=== PATIENT | male | born 1970 | race Caucasian/White ===

== ENCOUNTER → 2016-10-12 | Day surgery (SDC) | payer OTHER ==
[~2016-10-12] VITALS: Ht 177.8 cm; Wt 120.7 kg
[~2016-10-12] MED LIST: ACETAMINOPHEN 1000 MG/100 ML VIAL IV ONE; AMLO10 PO; ASPI-110 PO; BELLADONNA ALKALOIDS/OPIUM 60 MG SUPP RECTAL ONE; BENZ100 PO; CARV12.5 PO; CARV12.52 PO; CIPR-9 PO; DO NOT ADM ANY ANTICOAGULANT DRUGS XX PRN; FAMOTIDINE 20 MG/2 ML VIAL IV ONE; FURO1TAB60 PO; FURO20TA PO; HYDR-2374 PO; HYDR-3583 PO; HYDROmorphone HCL PF 1 MG/ML VIAL IV PRN; IOHEXOL 350 MG/ML 100 ML BTL (for RAD DIAG) OTHER ONE; ISOS30TA3 PO; LACTATED RINGER'S 1000 ML INJ 1,000 ML ONE; LISI-515 PO; MIDAZOLAM HCL 2 MG/2 ML VIAL ONE; NITR0.4S SL; ONDA1TAB17 PO; ONDANSETRON HCL 4 MG/2 ML VIAL IV PUSH ONE; ONDANSETRON HCL 4 MG/2 ML VIAL IV PUSH PRN; OXYB5TAB10 PO; OXYC1TAB63 PO; PERC5TAB12 PO; PLAV75TA29 PO; POTA-163 PO; POTA10TA2 PO; POTA20TA5 PO; PRAV80TA PO; PROPOFOL 200 MG/20 ML AMP IV ONE; SODIUM CHLORIDE 0.9% INJ 100 ML ONE; SPIR25 PO; Spironolactone PO; TAMS5CAP PO; WELC625T2 PO; ZETI10TA5 PO; ZOFR4TAB3 SL; ceFAZolin INJ 1,000 MG VIAL ONE; oxyCODONE/ACETAMINOPHEN 5 MG/325 MG TAB PO PRN
[2016-10-12 09:03] VITALS: BP 151/90; PULSE 74; RESP 20; TEMP 98.1; O2SAT 95
[2016-10-12 09:15] LABS: AUTOMATED NEUTROPHIL # 4.6 TH/MM3 (1.8-7.7); BASOPHIL % 0.5 % (0.0-2.0); EOSINOPHIL # 0.3 TH/MM3 (0-0.4); EOSINOPHIL % 4.3 % (0.0-4.0); HEMATOCRIT 37.4 % (39.0-51.0); HEMO FLAGS DIFF FINAL; LYMPH % 16.3 % (9.0-44.0); LYMPHOCYTE # 1.1 TH/MM3 (1.0-4.8); MEAN CELL VOLUME 86.2 FL (80.0-100.0); MEAN CORPUSCULAR HEMOGLOBIN 30.3 PG (27.0-34.0); MEAN CORPUSCULAR HGB CONC 35.2 % (32.0-36.0); MONO % 7.2 % (0.0-8.0); NEUT % 71.7 % (16.0-70.0); PLATELET COUNT 188 TH/MM3 (150-450); RED BLOOD COUNT 4.34 MIL/MM3 (4.50-5.90); RED CELL DISTRIBUTION WIDTH 14.3 % (11.6-17.2); WHITE BLOOD COUNT 6.5 TH/MM3 (4.0-11.0)
--- NOTE | 2016-10-12 11:21 | PD.OP ---
Operative Report Date of Surgery: Oct 12, 2016 Preoperative Diagnosis: right renal and ureteral stones Postoperative Diagnosis: same Procedure: cystoscopy; right retrograde study; right JJ stent insertion Anesthesia: General LMA Surgeon: Adolfo Fofana Development Intern(s): none Resident Surgeon: none Operation and Findings: 45 y.o. male presented to the office with findings of bilateral renal calculi with right ureteral calculi. Plan was to take the pt to the operating room to undergo cystoscopy with right JJ stent insertion. Risks and benefits were discussed and the patient was willing to proceed. Patient was brought to the operating room and identified by myself as Milo Patino. He was placed in dorsal lithotomy position, prepped and draped in usual sterile fashion, received preprocedure antibiotics, and general LMA anesthesia was administered. A a 22 [place] scope was inserted in the bladder acharya cystoscopy did not reveal any abnormalities. The right ureteral orifice was identified and a 5 [place] open catheter was inserted into the right ureteral orifice. Right retrograde study was performed showing a proximal ureteral stone as well as some small stones within the right kidney. A 0.35 sensor wire was passed through the open- ended catheter and left in good position. A 22 [place] 6 cm right double-J stent was inserted into the right kidney with a good curl in the kidney and a good curl in the bladder. The bladder was evacuated and he was transferred to recovery was stable condition. He will follow-up to undergo possible right extracoporeal shockwave lithotripsy in the near future once we obtain cardiac clearance. We will need to hold his aspirin and Plavix preoperatively if cleared by cardiology. Adolfo Fofana DO Oct 12, 2016 11:21
[2016-10-12 12:40] VITALS: BP 156/96; PULSE 56; RESP 16; TEMP 97.9; O2SAT 98
--- NOTE | 2016-10-12 14:46 | EKG ---
Date Performed: 10/12/2016 Time Performed: 10:28:05 PTAGE: 45 years EKG: Sinus rhythm POSSIBLE LEFT ATRIAL ENLARGEMENT LEFT VENTRICULAR HYPERTROPHY AND ST-T CHANGE ABNORMAL ECG Compared to prior tracing no significant change PREVIOUS TRACING : 06/07/2016 07.06 DOCTOR: Sourav Frances Interpretating Date/Time 10/12/2016 14:41:32
== END | disposition home or self-care (01) ==
LOC: HSDC 07:58
PROVIDERS: ATTEND Urology
DX: N20.2 Calculus of kidney with calculus of ureter (principal); I25.10 Atherosclerotic heart disease of native coronary artery without angina pectoris; I10 Essential (primary) hypertension; E78.5 Hyperlipidemia, unspecified; Z95.1 Presence of aortocoronary bypass graft
CPT/HCPCS: 00910; 52332; 74420; 85025; 93005; C1769; C2617; J0131; J0690; J2250; J2405; J3010; J7120; Q9967

== ENCOUNTER → 2016-11-01 | Day surgery (SDC) | payer OTHER ==
[~2016-11-01] VITALS: Ht 177.8 cm; Wt 121.0 kg
[~2016-11-01] MED LIST changes: -ACETAMINOPHEN 1000 MG/100 ML VIAL IV ONE; -BELLADONNA ALKALOIDS/OPIUM 60 MG SUPP RECTAL ONE; +CHLORHEXIDINE GLUCONATE 2 % 1 PACK (2 CLOTHS) TOPICAL PRN; +DEXAMETHASONE SOD PHOS 4 MG/ML VIAL ONE; +DO NOT ADM ANY ANTICOAGULANT DRUGS PRN; -DO NOT ADM ANY ANTICOAGULANT DRUGS XX PRN; -FAMOTIDINE 20 MG/2 ML VIAL IV ONE; +FAMOTIDINE 20 MG/2 ML VIAL ONE; -HYDROmorphone HCL PF 1 MG/ML VIAL IV PRN; +INSULIN HUMAN REGULAR 1,000 UNITS/10 ML VIAL SQ PRN; -IOHEXOL 350 MG/ML 100 ML BTL (for RAD DIAG) OTHER ONE; -LACTATED RINGER'S 1000 ML INJ 1,000 ML ONE; +LACTATED RINGER'S 1000 ML IV PRN; +METOPROLOL TARTRATE 25 MG TAB PO PRN; +POVIDONE IODINE 5% (ANTISEPSIS KIT) 4 APPLICATIONS EACH NARE PRN; +SODIUM CHLORID 0.9% 500 ML IV PRN; -SODIUM CHLORIDE 0.9% INJ 100 ML ONE; -ceFAZolin INJ 1,000 MG VIAL ONE; +ePHEDrine/NS 25 MG/5 ML SYR IV ONE; +fentaNYL CITRATE 250 MCG/5 ML AMP ONE
--- NOTE | 2016-11-01 06:10 | RADRPT ---
EXAM DATE/TIME: 11/01/2016 05:44 [facility] COMPARISON: CTA THORACIC ABDOMINAL AORTA W 3D RECON, June 07, 2016, 3:29. INDICATIONS : Lithotripsy. Abdomen pain. MEDICAL HISTORY : None. SURGICAL HISTORY : None. ENCOUNTER: Initial ACUITY: 1 day PAIN SCORE: 0/10 LOCATION: Bilateral abdomen FINDINGS: Supine view of the abdomen was performed. Limited study due to patient's body habitus. The abdominal bowel gas pattern is normal. Right-sided double-J stent noted. There appear to be some right-sided r enal calculi more prominent in the lower lobe measuring up to 2.7 cm. 1 cm upper pole right renal douglas culus and lower pole left renal calculus. No abnormal masses, calcifications, or organomegaly is seen . The osseous structures are unremarkable. CONCLUSION: Bilateral renal calculi and right-sided nephroureteral stent. Mitch Toro MD on November 01, 2016 at 6:07 Board Certified Radiologist. This report was verified electronically.
[2016-11-01 06:19] VITALS: BP 154/95; PULSE 76; RESP 20; TEMP 98.4; O2SAT 95
[2016-11-01 06:24] LABS: AUTOMATED NEUTROPHIL # 4.5 TH/MM3 (1.8-7.7); BASOPHIL % 0.5 % (0.0-2.0); EOSINOPHIL # 0.3 TH/MM3 (0-0.4); HEMATOCRIT 37.1 % (39.0-51.0); HEMO FLAGS DIFF FINAL; LYMPH % 17.7 % (9.0-44.0); LYMPHOCYTE # 1.1 TH/MM3 (1.0-4.8); MEAN CELL VOLUME 86.6 FL (80.0-100.0); MEAN CORPUSCULAR HEMOGLOBIN 30.1 PG (27.0-34.0); MEAN CORPUSCULAR HGB CONC 34.8 % (32.0-36.0); NEUT % 68.8 % (16.0-70.0); PLATELET COUNT 180 TH/MM3 (150-450); RED BLOOD COUNT 4.28 MIL/MM3 (4.50-5.90); RED CELL DISTRIBUTION WIDTH 14.3 % (11.6-17.2); WHITE BLOOD COUNT 6.5 TH/MM3 (4.0-11.0)
--- NOTE | 2016-11-01 08:43 | PD.OP ---
Operative Report Date of Surgery: Nov 01, 2016 Preoperative Diagnosis: (1) Renal calculus, right Postoperative Diagnosis: (1) Renal calculus, right Procedure: Extra corporeal shockwave lithotripsy right renal calculus Anesthesia: General Surgeon: Boston Parham Casino Cashier Manager(s): None Operation and Findings: Indication for procedure: Case of a pleasant 45-year-old gentleman with a large right lower pole renal calculus who presents today for extracorporeal shockwave lithotripsy. Patient is status post recent right ureteral stent placement by my associate Dr. Fofana. Operative procedure in detail: Patient was brought to the operating room suite and placed supine on the lithotripsy table. He was then placed under general anesthesia. After an appropriate timeout was undertaken, the patient's right lower pole renal calculus was localized with fluoroscopy. He next received extracorporeal shockwave lithotripsy utilizing the [employer] Piezolith 3000 device. The patient received a total of 3000 shocks with a maximum power level setting of 20. At the conclusion of the procedure the stone was spread out and much fishing rod mechanic in intensity consistent with fragmentation. He tolerated the procedure without complications and was transferred to the PACU in satisfactory condition. Boston Parham MD Nov 01, 2016 08:43
[2016-11-01 10:00] VITALS: BP 144/93; PULSE 70; RESP 20; TEMP 97.9; O2SAT 96
== END | disposition home or self-care (01) ==
LOC: HSDC 05:15
PROVIDERS: ATTEND Urology
DX: N20.0 Calculus of kidney (principal); I10 Essential (primary) hypertension
CPT/HCPCS: 00873; 50590; 74000; 85025; J1100; J2250; J2405; J3010; J7120

== ENCOUNTER 2016-11-17 19:47 | Inpatient (IN) | payer OTHER ==
[~2016-11-17] VITALS: Ht 177.8 cm; Wt 122.0 kg
[~2016-11-17 19:47] MED LIST changes: -BENZ100 PO; -CARV12.52 PO; -CHLORHEXIDINE GLUCONATE 2 % 1 PACK (2 CLOTHS) TOPICAL PRN; -DEXAMETHASONE SOD PHOS 4 MG/ML VIAL ONE; -DO NOT ADM ANY ANTICOAGULANT DRUGS PRN; -FAMOTIDINE 20 MG/2 ML VIAL ONE; -FURO20TA PO; -HYDR-2374 PO; -HYDR-3583 PO; -INSULIN HUMAN REGULAR 1,000 UNITS/10 ML VIAL SQ PRN; -LACTATED RINGER'S 1000 ML IV PRN; -METOPROLOL TARTRATE 25 MG TAB PO PRN; -MIDAZOLAM HCL 2 MG/2 ML VIAL ONE; -ONDA1TAB17 PO; -ONDANSETRON HCL 4 MG/2 ML VIAL IV PUSH ONE; -ONDANSETRON HCL 4 MG/2 ML VIAL IV PUSH PRN; -OXYB5TAB10 PO; -OXYC1TAB63 PO; -POTA-163 PO; -POTA10TA2 PO; -POVIDONE IODINE 5% (ANTISEPSIS KIT) 4 APPLICATIONS EACH NARE PRN; -PROPOFOL 200 MG/20 ML AMP IV ONE; -SODIUM CHLORID 0.9% 500 ML IV PRN; -Spironolactone PO; -TAMS5CAP PO; -WELC625T2 PO; -ZETI10TA5 PO; -ZOFR4TAB3 SL; -ePHEDrine/NS 25 MG/5 ML SYR IV ONE; -fentaNYL CITRATE 250 MCG/5 ML AMP ONE; -oxyCODONE/ACETAMINOPHEN 5 MG/325 MG TAB PO PRN
[2016-11-17 19:48] VITALS: BP 168/103; PULSE 96; RESP 16; TEMP 98.8; O2SAT 98
[2016-11-17 20:17] VITALS: BP 169/95; PULSE 95; RESP 18; O2SAT 97
[2016-11-17] MEDS ORDERED: PLAV75TA29 PO (20:21)
[2016-11-17] MEDS ORDERED: ASPIRIN 81 MG CHEW TAB PO ONE (20:30)
[2016-11-17] MEDS ORDERED: SODIUM CHLORIDE 0.9% FLUSH 10 ML FLUSH IVF PRN (20:30)
[2016-11-17] MEDS: NITROGLYCERIN 0.4 MG SL 25 TABS/BTL SL SCH ×3 (20:35→20:40)
--- NOTE | 2016-11-17 20:45 | PD ---
HPI Chief Complaint: Chest Pain Time Seen by Provider: 20:19 Travel History International Travel<30 days: No Contact w/Intl Traveler<30days: No Traveled to known affect area: No History of Present Illness HPI 46yo M with PMH of CAD s/p multiple cardiac cath with 3 stents presents to the ED with c/o chest pain for 1 week. States that he has been having cold like symptoms with coughing, nasal congestion and today chest pain worsened. Pain is pressure like, constant, left sided and now radiates to left arm with heaviness. Associated with some sob and nausea earlier. Pt took aspirin at home. Pt had PCI to mid LAD with placement of drug eluting stent by Dr. Schneider last 05/2016. However, pt follows with Dr. Lima (case liner) now due to insurance and has stress test schedule 1 year from last cath. Denies any fever, vomiting, abdominal pain, focal weakness. PFSH Past Medical History Arthritis: Yes Depression: Yes Cancer: No Cardiac Catheterization: Yes Cardiovascular Problems: Yes (6 AR with 3 stents) High Cholesterol: Yes Chest Pain: Yes Congestive Heart Failure: Yes Cerebrovascular Accident: Yes (TIA X 2) Diabetes: Yes (borderline) Patient Takes Glucophage: No Diminished Hearing: No Endocrine: No GERD: Yes Genitourinary: No Headaches: Yes Hepatitis: No Hiatal Hernia: No Hypertension: Yes Immune Disorder: No Reproductive: No Respiratory: No Migraines: Yes Myocardial Infarction: Yes (X 6) Pneumonia: Yes Sleep Apnea: Yes Thyroid Disease: No Tetanus Vaccination: < 5 Years Influenza Vaccination: No Past Surgical History AICD: No Body Medical Devices: 3 CARDIAC STENTS & STENT RIGHT KIDNEY Cardiac Surgery: Yes (heart caths) Cholecystectomy: Yes Coronary Stent: Yes (X 3) Joint Replacement: No Pacemaker: No Tonsillectomy: Yes Other Surgery: Yes (gallbladder, ) Social History Alcohol Use: No Tobacco Use: No Substance Use: No Allergies-Medications (Allergen,Severity, Reaction): Coded Allergies: Lipitor (Verified Allergy, Severe, Rash, 11/17/16) LEGS Morphine (Verified Allergy, Severe, Constipation, 11/17/16) Zocor (Verified Allergy, Severe, Rash, 11/17/16) LEGS HMG-CoA Reductase Inhibitors (Verified Allergy, Unknown, Cramping, 11/17/16 ) Reported Meds & Prescriptions Reported Meds & Active Scripts Active Percocet (Oxycodone-Acetaminophen) 5-325 mg Tab 1-2 Tab PO Q6H PRN Norvasc (Amlodipine Besylate) 10 Mg Tab 10 Mg PO DAILY Pravachol (Pravastatin) 80 Mg Tab 80 Mg PO HS Potassium Chloride Microencaps 20 Meq Tab 20 Meq PO BID Lisinopril 20 Mg Tab 40 Mg PO DAILY Lasix (Furosemide) 40 Mg Tab 40 Mg PO DAILY Coreg (Carvedilol) 12.5 Mg Tab 25 Mg PO BID Reported Plavix (Clopidogrel Bisulfate) 75 Mg Tab 75 Mg PO DAILY Cipro (Ciprofloxacin HCl) 500 Mg Tab 500 Mg PO BID Aldactone (Spironolactone) 25 Mg Tab 25 Mg PO DAILY Isosorbide Mononitrate ER (Isosorbide Mononitrate) 30 Mg Sameer 30 Mg PO DAILY Nitrostat SL (Nitroglycerin) 0.4 Mg Subl 0.4 Mg SL DIRECTED PRN 1 tablet under the tongue as needed for chest pain. Repeat every 5 minutes for a total of 3 DOSES or call 911 if NO relief. Aspirin 81 (Aspirin) 81 Mg Tabdr 81 Mg PO DAILY Review of Systems Except as stated in HPI: all other systems reviewed are Neg Physical Exam Narrative GENERAL: 46yo M in mild distress. SKIN: Focused skin assessment warm/dry. HEAD: Atraumatic. Normocephalic. EYES: Pupils equal and round. No scleral icterus. No injection or drainage. ENT: No nasal bleeding or discharge. Mucous membranes pink and moist. NECK: Trachea midline. No JVD. CARDIOVASCULAR: Regular rate and rhythm. No murmur appreciated. RESPIRATORY: No accessory muscle use. Clear to auscultation. Breath sounds equal bilaterally. GASTROINTESTINAL: Abdomen soft, non-tender, nondistended. MUSCULOSKELETAL: No obvious deformities. No clubbing. No cyanosis. No edema. NEUROLOGICAL: Awake and alert. No obvious cranial nerve deficits. Motor grossly within normal limits. Normal speech. PSYCHIATRIC: Appropriate mood and affect; insight and judgment normal. Data Data Last Documented VS Vital Signs Date Time Temp Pulse Resp B/P Pulse Ox O2 Delivery O2 Flow Rate FiO2 11/17/16 21:16 97 Room Air 11/17/16 21:16 93 18 163/91 175/78 11/17/16 19:48 98.8 Orders Basic Metabolic Panel (Bmp) (11/17/16 20:27) Ckmb (Isoenzyme) Profile (11/17/16 20:27) Complete Blood Count With Diff (11/17/16 20:27) Magnesium (Mg) (11/17/16 20:27) Prothrombin Time / Inr (Pt) (11/17/16 20:27) Act Partial Throm Time (Ptt) (11/17/16 20:27) Troponin I (11/17/16 20:27) Chest, Single Ap (11/17/16 20:27) Ecg Monitoring (11/17/16 20:27) Bilateral Bp Monitoring (11/17/16 20:27) Iv Access Insert/Monitor (11/17/16 20:27) Oximetry (11/17/16 20:27) Oxygen Administration (11/17/16 20:27) Aspirin Chew (Aspirin Chew) (11/17/16 20:30) Sodium Chloride 0.9% Flush (Ns Flush) (11/17/16 20:30) Nitroglycerin Sl (Nitrostat Sl) (11/17/16 20:30) Acetaminophen (Tylenol) (11/17/16 22:00) Admit Order (Ed Use Only) (11/17/16 22:17) Spooler / Telemetry JOHANNA.Q8H (11/17/16:17) Metoprolol Tartrate (Lopressor) (11/18/16 09:00) Heparin Infusion JOHANNA.Q1H (11/17/16:17) Heparin Inj (Heparin Inj) (11/18/16 04:30) Heparin Inj (Heparin Inj) (11/18/16 04:30) Heparin-D5w Inj (Heparin-D5w Inj) (11/17/16 22:30) Act Partial Throm Time (Ptt) (11/17/16 22:17) Prothrombin Time / Inr (Pt) (11/17/16:17) Cbc No Diff, Includes Plts (11/17/16:17) Cbc No Diff, Includes Plts (11/20/16 06:00) Act Partial Throm Time (Ptt) (11/18/16 05:17) Npo After Midnight W/ Po Meds (11/18/16 Breakfast) Labs Laboratory Tests Test 11/17/16 20:35 White Blood Count 9.8 TH/MM3 Red Blood Count 4.47 MIL/MM3 Hemoglobin 13.3 GM/DL Hematocrit 38.7 % Mean Corpuscular Volume 86.6 FL Mean Corpuscular Hemoglobin 29.8 PG Mean Corpuscular Hemoglobin 34.4 % Concent Red Cell Distribution Width 14.4 % Platelet Count 195 TH/MM3 Mean Platelet Volume 9.0 FL Neutrophils (%) (Auto) 77.5 % Lymphocytes (%) (Auto) 9.0 % Monocytes (%) (Auto) 6.9 % Eosinophils (%) (Auto) 6.2 % Basophils (%) (Auto) 0.4 % Neutrophils # (Auto) 7.6 TH/MM3 Lymphocytes # (Auto) 0.9 TH/MM3 Monocytes # (Auto) 0.7 TH/MM3 Eosinophils # (Auto) 0.6 TH/MM3 Basophils # (Auto) 0.0 TH/MM3 CBC Comment DIFF FINAL Differential Comment Prothrombin Time 10.3 SEC Prothromb Time International 0.9 RATIO Ratio Activated Partial 27.2 SEC Thromboplast Time Sodium Level 139 MEQ/L Potassium Level 3.5 MEQ/L Chloride Level 103 MEQ/L Carbon Dioxide Level 28.6 MEQ/L Anion Gap 7 MEQ/L Blood Urea Nitrogen 14 MG/DL Creatinine 1.57 MG/DL Estimat Glomerular Filtration 48 ML/MIN Rate Random Glucose 153 MG/DL Calcium Level 8.7 MG/DL Magnesium Level 1.9 MG/DL Total Creatine Kinase 39 U/L Troponin I LESS THAN 0.02 NG/ML [facility] Medical Decision Making Medical Screen Exam Complete: Yes Emergency Medical Condition: Yes Interpretation(s) EKG: NSR 96bpm. LAD. TWI V4-6 unchanged. However, new ST depression diffusely in I, aVL, II, aVF. Differential Diagnosis Unstable angina vs. NSTEMI Narrative Course 46yo M with CAD and left sided chest pain for about 1 week but is worst today with new heaviness to left arm. Labs reviewed, no leukocytosis. Troponin negative. Creatinine mildly elevated at 1.57 but around baseline. Troponin is negative. CXR showed cardiomegaly. Pt given another dose of aspirin 81mg since he took his aspirin 81mg at home. Pt given sublingual nitro but it gave him a headache and he is requesting acetaminophen. Pt does not want any more nitro and does not want morphine because he gets very constipated. Discussed with cardiology vp construction Dr. Harrell who recommends beta elio, heparin, IV nitro and NPO after midnight. He will plan for cardiac cath tomorrow. Pt does not want nitro but agree with plan. Discussed with Dr. Long and accepted to her service. Critical Care Narrative Aggregate critical care time was 40 minutes. Time to perform other separately billable procedures was not included in the critical care time. My time did not include minutes spent treating any other patients simultaneously or on activities that did not directly contribute to the patient's treatment. The services I provided to this patient were to treat and/or prevent clinically significant deterioration that could result in: cardiovascular collapse or . I provided critical care services requiring my management, as noted below: Chart data review, documentation time, medication orders and management, vital sign assessments/reviewing monitor data, ordering and reviewing lab tests, ordering and interpreting/reviewing x-rays and diagnostic studies, care of the patient and discussion of the patient with the admitting physicians. Diagnosis Primary Impression: Unstable angina Anais Song DO Nov 17, 2016 20:45
[2016-11-17 20:56] LABS: AUTOMATED NEUTROPHIL # 7.6 TH/MM3 (1.8-7.7); BASOPHIL % 0.4 % (0.0-2.0); EOSINOPHIL # 0.6 TH/MM3 (0-0.4); EOSINOPHIL % 6.2 % (0.0-4.0); HEMATOCRIT 38.7 % (39.0-51.0); HEMO FLAGS DIFF FINAL; LYMPHOCYTE # 0.9 TH/MM3 (1.0-4.8); MEAN CELL VOLUME 86.6 FL (80.0-100.0); MEAN CORPUSCULAR HEMOGLOBIN 29.8 PG (27.0-34.0); MEAN CORPUSCULAR HGB CONC 34.4 % (32.0-36.0); MONO % 6.9 % (0.0-8.0); NEUT % 77.5 % (16.0-70.0); PLATELET COUNT 195 TH/MM3 (150-450); RED BLOOD COUNT 4.47 MIL/MM3 (4.50-5.90); RED CELL DISTRIBUTION WIDTH 14.4 % (11.6-17.2); WHITE BLOOD COUNT 9.8 TH/MM3 (4.0-11.0)
[2016-11-17 21:10] LABS: APTT (PATIENT) 27.2 SEC (24.3-30.1); INTERNATIONAL NORMALIZED RATIO 0.9 RATIO; PROTHROMBIN TIME - PATIENT 10.3 SEC (9.8-11.6)
[2016-11-17 21:16] VITALS: BP_SYST 163; BP_SYST 175; BP_DIAS 78; BP_DIAS 91; PULSE 93; RESP 18; O2SAT 97
--- NOTE | 2016-11-17 21:16 | RADRPT ---
EXAM DATE/TIME: 11/17/2016 20:46 [facility] COMPARISON: CHEST SINGLE AP, June 06, 2016, 17:55. INDICATIONS : Chest pain and slight shortness of breath. MEDICAL HISTORY : Hypertension. Congestive heart failure. Coronary artery disease. Cardiomegaly. SURGICAL HISTORY : Stent placement. ENCOUNTER: Initial ACUITY: 1 week PAIN SCORE: 4/10 LOCATION: Left chest FINDINGS: Heart size is mildly enlarged. The lungs are grossly clear. No effusion is seen. Spurs are seen in th e thoracic spine. CONCLUSION: Cardiomegaly. Andrea Bates MD on November 17, 2016 at 21:14 Board Certified Radiologist. This report was verified electronically.
[2016-11-17 21:25] LABS: ANION GAP 7 MEQ/L (5-15); BICARBONATE 28.6 MEQ/L (21.0-32.0); BLOOD UREA NITROGEN 14 MG/DL (7-18); CHLORIDE 103 MEQ/L (98-107); GLOMERULAR FILTRATION RATE 48 ML/MIN (>89); MAGNESIUM 1.9 MG/DL (1.5-2.5); POTASSIUM 3.5 MEQ/L (3.5-5.1); SODIUM (NA) 139 MEQ/L (136-145)
[2016-11-17 21:31] LABS: CREATINE KINASE 39 U/L (39-308)
[2016-11-17] MEDS ORDERED: ACETAMINOPHEN 325 MG TAB PO ONE (22:00)
--- NOTE | 2016-11-17 22:27 | HHI.HP ---
[facility] Huang Graf DO Admission Diagnosis Unstable angina Diagnoses: (1) Unstable angina Diagnosis: Principal (2) HTN (hypertension) Diagnosis: Principal (3) Renal insufficiency Diagnosis: Principal (4) CHF (congestive heart failure) Diagnosis: Principal Travel History International Travel<30 Days: No Contact w/Intl Traveler <30 Da: No Traveled to Known Affected Are: No History of Present Illness This is a 46-year-old male with a PMH of Depression, CHF (Echo 06/07/16 w/ EF 45 -50%), CAD s/p Stent x3, h/o TIA and GERD who presented to the ER w/ complaints of chest pain x1 wk. States pain has been intermittent, pressure-like w/ radiation to left arm. Notes symptoms similar to previous episodes of CAD. Last Cath 05/[address] Schneider w/ PCI to Mid LAD and JAVED. Follows w/ Dr. Lima as outpatient, states he is scheduled for Stress Test in May. On arrival, BP 175/78, HR 93, O2 sat 97% on RA, Afebrile. CBC unremarkable. Troponin negative. Creatinine 1.57, previously 1.45 on 06/08/16. CXR with cardiomegaly. Dr. Harrell consulted by ER physician, recommended Heparin gtt and NPO after midnight for Cardiac Cath in am. S/p NTG in ER, however pt w/ headache. Declines Morphine due to constipation. Review of Systems Except as stated in HPI: all other systems reviewed are Neg ROS: 14 point review of systems otherwise negative. Past Family Social History Past Medical History PMH: Depression, CHF (Echo 06/07/16 w/ EF 45-50%), CAD s/p Stent x3, h/o TIA and GERD Past Surgical History PAST SURGICAL HISTORY: Cardiac Stent, Cholecystectomy, Tonsillectomy Allergies: Coded Allergies: Lipitor (Verified Allergy, Severe, Rash, 11/17/16) LEGS Morphine (Verified Allergy, Severe, Constipation, 11/17/16) Zocor (Verified Allergy, Severe, Rash, 11/17/16) LEGS HMG-CoA Reductase Inhibitors (Verified Allergy, Unknown, Cramping, 11/17/16 ) Family History PAST FAMILY HISTORY: Reviewed. No h/o DM or CAD Social History PAST SOCIAL HISTORY: Negative for alcohol, tobacco or drugs. Physical Exam Vital Signs Vital Signs Date Time Temp Pulse Resp B/P Pulse Ox O2 Delivery O2 Flow Rate FiO2 11/17/16 21:16 97 Room Air 11/17/16 21:16 97 Room Air 11/17/16 21:16 93 18 163/91 97 Room Air 175/78 11/17/16 20:17 95 18 169/95 97 11/17/16 19:48 98.8 96 16 168/103 98 Room Air Physical Exam PE: GENERAL: Middle-aged white male in no acute distress. HEENT: PERRLA, EOMI. No scleral icterus or conjunctival pallor. No lid lag or facial droop. CARDIOVASCULAR: Regular rate and rhythm. No obvious murmurs to auscultation. No chest tenderness to palpation. RESPIRATORY: No obvious rhonchi or wheezing. Clear to auscultation. Breath sounds equal bilaterally. GASTROINTESTINAL: Abdomen soft, non-tender, nondistended. BS normal. MUSCULOSKELETAL: Extremities without clubbing, cyanosis, or edema. No obvious deformities. NEUROLOGICAL: Awake, alert and oriented x4. No focal neurologic deficits. Moving both upper and lower extremities spontaneously. Laboratory Laboratory Tests Test 11/17/16 20:35 White Blood Count 9.8 Red Blood Count 4.47 Hemoglobin 13.3 Hematocrit 38.7 Mean Corpuscular Volume 86.6 Mean Corpuscular Hemoglobin 29.8 Mean Corpuscular Hemoglobin 34.4 Concent Red Cell Distribution Width 14.4 Platelet Count 195 Mean Platelet Volume 9.0 Neutrophils (%) (Auto) 77.5 Lymphocytes (%) (Auto) 9.0 Monocytes (%) (Auto) 6.9 Eosinophils (%) (Auto) 6.2 Basophils (%) (Auto) 0.4 Neutrophils # (Auto) 7.6 Lymphocytes # (Auto) 0.9 Monocytes # (Auto) 0.7 Eosinophils # (Auto) 0.6 Basophils # (Auto) 0.0 CBC Comment DIFF FINAL Differential Comment Prothrombin Time 10.3 Prothromb Time International 0.9 Ratio Activated Partial 27.2 Thromboplast Time Sodium Level 139 Potassium Level 3.5 Chloride Level 103 Carbon Dioxide Level 28.6 Anion Gap 7 Blood Urea Nitrogen 14 Creatinine 1.57 Estimat Glomerular Filtration 48 Rate Random Glucose 153 Calcium Level 8.7 Magnesium Level 1.9 Total Creatine Kinase 39 Troponin I LESS THAN 0.02 Result Diagram: 11/17/16203411/17/162034 Assessment and Plan Problem List: (1) Unstable angina ICD Code: I20.0 Status: Acute (2) Renal insufficiency ICD Code: N28.9 Status: Acute (3) HTN (hypertension) ICD Code: I10 Status: Acute (4) CHF (congestive heart failure) ICD Code: I50.9 Status: Acute Assessment and Plan A/P: 1. Unstable Angina: c/o chest pain x1 wk, h/o CAD s/p Cardiac Cath 05/2016 w/ PCI to Mid LAD and JAVED placement, following w/ Dr. Lima as outpatient, scheduled for repeat Stress Test in May. Trop negative, however EKG w/ new ST Depressions. Dr. Harrell consulted by ER physician, recommended Heparin gtt, NPO and plan for Cardiac Cath in am. Pt declining Morphine due to constipation and NTG due to headache. Start B-elio. Analgesics as needed. Check serial cardiac enzymes. 2. HTN: BP 170's systolic, resume home medications, monitor BP. 3. Renal Insufficiency: Acute on Chronic. Creatinine 1.57, previously 1.45 on 06/08/16. Monitor renal function, repeat labs in am. 4. CHF: Chronic. Systolic. Echo 06/07/16 w/ EF 45-50%. Resume home Lasix, Aldactone, caution w/ renal function, repeat labs in am. 5. DVT Prophylaxis: On Heparin gtt 6. Social work for d/c planning as needed. 7. Case discussed w/ ER physician at length. Physician Certification 2 Midnight Certification Type: Admission for Inpatient Services Order for Inpatient Services The services are ordered in accordance with Medicare regulations or non- Medicare payer requirements, as applicable. In the case of services not specified as inpatient-only, they are appropriately provided as inpatient services in accordance with the 2-midnight benchmark. Estimated LOS (days): 2 days is the estimated time the patient will need to remain in the hospital, assuming treatment plan goals are met and no additional complications. Post-Hospital Plan: Not yet determined Rolanda Long MD Nov 17, 2016 22:27
[2016-11-17] MEDS ORDERED: ONDANSETRON HCL 4 MG/2 ML VIAL IVP PRN (22:30)
[2016-11-17] MEDS ORDERED: SODIUM CHLORIDE 0.9% FLUSH 10 ML FLUSH IV FLUSH PRN (22:30)
[2016-11-17] MEDS ORDERED: HYDROmorphone HCL PF 1 MG/ML VIAL IV PRN (22:30)
[2016-11-17] MEDS ORDERED: BISACODYL 10 MG SUPP RECTAL PRN (22:30)
[2016-11-17] MEDS ORDERED: ACETAMINOPHEN 325 MG TAB PO PRN (22:30)
[2016-11-17 22:34] VITALS: BP 206/116; PULSE 87; RESP 20; O2SAT 98
[2016-11-17 22:42] LABS: HEMATOCRIT 39.5 % (39.0-51.0); MEAN CELL VOLUME 87.7 FL (80.0-100.0); MEAN CORPUSCULAR HEMOGLOBIN 29.3 PG (27.0-34.0); MEAN CORPUSCULAR HGB CONC 33.4 % (32.0-36.0); PLATELET COUNT 163 TH/MM3 (150-450); RED BLOOD COUNT 4.51 MIL/MM3 (4.50-5.90); RED CELL DISTRIBUTION WIDTH 14.3 % (11.6-17.2); REVIEW FLAG FINAL; WHITE BLOOD COUNT 9.9 TH/MM3 (4.0-11.0)
[2016-11-17] MEDS ORDERED: METOPROLOL TARTRATE 5 MG/5 ML VIAL IV PUSH ONE (22:45)
[2016-11-17] MEDS: SODIUM CHLOR 0.9% 1000 ML INJ 1,000 ML IV SCH (22:50)
[2016-11-17] MEDS: ACETAMINOPHEN/HYDROcodone 325 MG/5 MG TAB PO PRN (22:51)
[2016-11-17] MEDS: HEPARIN-D5W INJ 250 ML IV SCH (22:58)
[2016-11-17 22:59] VITALS: BP 190/99; PULSE 82; RESP 18; O2SAT 98
[2016-11-17 23:27] LABS: APTT (PATIENT) 27.5 SEC (24.3-30.1); INTERNATIONAL NORMALIZED RATIO 0.9 RATIO; PROTHROMBIN TIME - PATIENT 10.4 SEC (9.8-11.6)
[2016-11-18] VITALS (22 sets, daily range): BP systolic 142–185; BP diastolic 67–98; PULSE 64–84; RESP 14–20; TEMP 98.3–98.8; O2SAT 95–98
[2016-11-18] MEDS ORDERED: HEPARIN SODIUM - IV 10,000 UNITS/10 ML VIAL IV PRN (04:30)
[2016-11-18] MEDS: ISOSORBIDE MONONITRATE 30 MG TAB PO SCH (05:42)
[2016-11-18 05:50] LABS: APTT (PATIENT) 31.2 SEC (24.3-30.1)
[2016-11-18] MEDS: HEPARIN SODIUM - IV 10,000 UNITS/10 ML VIAL IV PRN ×2 (06:00→15:45)
--- NOTE | 2016-11-18 08:12 | HHI.FPPN ---
Subjective Remarks No acute events overnight. Vital signs remain stable. Chest pain "improving." Continues to endorse cough and "rib pain" associated with the cough. No fevers or increased work of breathing. Objective Vitals Vital Signs Date Time Temp Pulse Resp B/P Pulse Ox O2 Delivery O2 Flow Rate FiO2 11/18/16 07:00 68 11/18/16 06:00 65 11/18/16 05:00 70 11/18/16 04:00 71 11/18/16 03:00 Room Air 11/18/16 03:00 98.3 70 20 158/92 97 11/18/16 03:00 70 11/18/16 01:44 83 18 178/67 98 Room Air 11/18/16 00:12 84 20 185/98 97 Room Air 11/17/16 22:59 82 18 190/99 98 Room Air 11/17/16 22:34 87 20 206/116 98 Room Air 11/17/16 21:16 97 Room Air 11/17/16 21:16 97 Room Air 11/17/16 21:16 93 18 163/91 97 Room Air 175/78 11/17/16 20:17 95 18 169/95 97 11/17/16 19:48 98.8 96 16 168/103 98 Room Air I/O 11/17/16 11/17/16 11/17/16 11/18/16 11/18/16 11/18/16 07:00 15:00 23:00 07:00 15:00 23:00 Intake Total 120 ml 300 ml Output Total 400 ml Balance 120 ml -100 ml Intake Oral 120 ml IV Total 300 ml Output Urine Total 400 ml # Bowel Movements 0 Result Diagram: 11/17/16222911/17/162034 Objective Remarks GEN: Well-developed, well-nourished patient. No acute distress. Cough and congestion CV: Regular rate and rhythm without obvious murmurs LUNGS: Clear to auscultation bilaterally. Normal respiratory effort. No wheezes , rales, rhonchi. GI: Soft, nontender, nondistended. No palpable masses. Bowel sounds WNL. EXT: No edema. NEURO/PSYCH: Afocal. Awake, alert, and oriented x3. Appropriate insight and judgment. A/P Assessment and Plan 45-year-old male with a past medical history of CAD status post stenting 3 and CHF, EF 45-50% who presents with angina at rest 1. Unstable Angina: c/o chest pain x1 wk, h/o CAD s/p Cardiac Cath 05/2016 w/ PCI to Mid LAD and JAVED placement, following w/ Dr. Lima as outpatient, scheduled for repeat Stress Test in May. Trop negative, however EKG w/ new ST Depressions. Overall, symptoms improved on Heparin GTT. Cardiac cath this afternoon. If cath reassuring, symptoms could be due to post-tussive irritation. 2. HTN: BP 150's systolic, continue home medications, monitor BP. 3. URI: likely viral. CXR reassuring. Tessalon pearls PRN cough 4. Renal Insufficiency: Acute on Chronic. Creatinine 1.57 -> 1/35 today, Monitor renal function post-cath. 5. CHF: Chronic. Systolic. Echo 06/07/16 w/ EF 45-50%. Continue home Lasix , Aldactone, caution w/ renal function 7. Social work for d/c planning as needed. Discharge Planning Pending cardiac catheterization this afternoon, likely today or tomorrow Problem List: (1) Unstable angina Status: Acute (2) HTN (hypertension) Status: Acute (3) Renal insufficiency Status: Acute (4) CHF (congestive heart failure) Status: Acute Montana Winslow MD R3 Nov 18, 2016 08:12
[2016-11-18] MEDS: SODIUM CHLOR 0.9% 1000 ML INJ 1,000 ML IV SCH ×2 (08:22→17:00)
[2016-11-18] MEDS: SODIUM CHLORIDE 0.9% FLUSH 10 ML FLUSH IV FLUSH SCH ×2 (09:38→21:00)
[2016-11-18] MEDS: METOPROLOL TARTRATE 25 MG TAB PO SCH (09:39)
[2016-11-18] MEDS: FUROSEMIDE 40 MG TAB PO SCH (09:39)
[2016-11-18] MEDS: SPIRONOLACTONE 25 MG TAB PO SCH (09:39)
[2016-11-18] MEDS: ACETAMINOPHEN/HYDROcodone 325 MG/5 MG TAB PO PRN (09:40)
[2016-11-18] MEDS: HEPARIN-D5W INJ 250 ML IV SCH (11:22)
[2016-11-18 11:55] LABS: AUTOMATED NEUTROPHIL # 4.7 TH/MM3 (1.8-7.7); BASOPHIL % 0.4 % (0.0-2.0); EOSINOPHIL # 0.6 TH/MM3 (0-0.4); EOSINOPHIL % 7.8 % (0.0-4.0); HEMATOCRIT 35.8 % (39.0-51.0); HEMO FLAGS DIFF FINAL; LYMPH % 14.9 % (9.0-44.0); LYMPHOCYTE # 1.1 TH/MM3 (1.0-4.8); MEAN CELL VOLUME 87.3 FL (80.0-100.0); MEAN CORPUSCULAR HEMOGLOBIN 29.4 PG (27.0-34.0); MEAN CORPUSCULAR HGB CONC 33.7 % (32.0-36.0); MONO % 10.6 % (0.0-8.0); NEUT % 66.3 % (16.0-70.0); PLATELET COUNT 142 TH/MM3 (150-450); RED CELL DISTRIBUTION WIDTH 14.4 % (11.6-17.2); WHITE BLOOD COUNT 7.1 TH/MM3 (4.0-11.0)
[2016-11-18 12:22] LABS: ALT (GPT) 23 U/L (12-78); ANION GAP 8 MEQ/L (5-15); AST (GOT) 14 U/L (15-37); BICARBONATE 25.3 MEQ/L (21.0-32.0); BLOOD UREA NITROGEN 14 MG/DL (7-18); CHLORIDE 107 MEQ/L (98-107); GLOMERULAR FILTRATION RATE 57 ML/MIN (>89); POTASSIUM 3.6 MEQ/L (3.5-5.1); SODIUM (NA) 140 MEQ/L (136-145)
[2016-11-18 12:26] LABS: ALKALINE PHOSPHATASE 75 U/L (45-117); TOTAL BILIRUBIN ADULT 0.7 MG/DL (0.2-1.0)
--- NOTE | 2016-11-18 14:29 | MB ---
cc: MARYBRII DATE OF CONSULTATION: 11/18/2016. HISTORY OF PRESENT ILLNESS: This is a 46-year-old white male with a history of congestive heart failure, mild cardiomyopathy and coronary stenting. His last cardiac catheterization in May of 2016 showed 40% stenosis of the mid right coronary artery, 90% calcified stenosis of the mid left anterior descending proximal to the previous stent with minimal in-stent re-stenosis, diffuse disease of the diagonals and diffuse mild to moderate disease of the marginals. The patient underwent stenting of the mid left anterior descending using a 2.5 x 22 mm Resolute stent post-dilated with a 3.0 noncompliant balloon with 10% residual stenosis of the proximal vessel. Mr. Patino presented with one week of intermittent substernal chest pressure with radiation to the left arm similar to his previous angina. PAST MEDICAL HISTORY: His past medical history is positive for: 1. Depression. 2. Congestive heart failure. 3. Cardiomyopathy. 4. Echocardiogram 05/2016 showed ejection fraction of 45% to 50%. 5. Coronary artery disease with coronary stenting as above. 6. TIA. 7. Gastroesophageal reflux disease (GERD). 8. Cholecystectomy. 9. Tonsillectomy. 10. Noncompliance with medical care. MEDICATIONS: His medications included: 1. Lisinopril. 2. Carvedilol. 3. Amlodipine. 4. Pravastatin. 5. Furosemide. 6. Spironolactone. 7. Isosorbide. 8. Nitroglycerin. 9. Aspirin. 10. Oxycodone. 11. Acetaminophen. 12. Plavix. 13. Ciprofloxacin. 14. Potassium chloride. ALLERGIES: 1. STATINS. 2. MORPHINE. SOCIAL HISTORY: The patient does not smoke. He does not drink alcohol. FAMILY HISTORY: The family history is negative for heart disease. REVIEW OF SYSTEMS: The review of systems is otherwise negative. PHYSICAL EXAMINATION: VITAL SIGNS: Blood pressure 150/96, pulse 59 and regular. HEAD, EYES, EARS, NOSE, THROAT: Negative. NECK: 2+ carotid upstrokes, no bruits. LUNGS: Clear. HEART: Regular with no murmurs, rubs or gallops. ABDOMEN: Abdomen soft. No bruits. EXTREMITIES: No edema. 2+ distal pulses. NEUROLOGIC: Grossly nonfocal. EKGS: EKG was reviewed and showed normal sinus rhythm, normal axis interval, diffuse S-T-T changes. LABS: Hemoglobin 12.1. Potassium 3.6, creatinine 1.57 and 1.35. Troponin negative x3. CK 39. AST and ALT normal. DIAGNOSIS: 1. Unstable angina. 2. Coronary artery disease with history of left anterior descending coronary artery stenting. 3. Hypertension. 4. Renal insufficiency. 5. Cardiomyopathy with left ventricular systolic dysfunction. 6. History of TIA. 7. History of gastroesophageal reflux disease (GERD). 8. Depression. DISPOSITION: Mr. Patino will undergo cardiac catheterization and coronary intervention if necessary. He understands the risks and benefits and wishes to proceed. We will continue aggressive modification of his cardiac risk factors. We will also continue antiplatelet therapy. He will follow up with his primary electrodynamicist in his office after discharge. MD NEVAEH Joyce/MALVIN /1:33 PM /2:15 PM NUBIA
[2016-11-18] MEDS ORDERED: BENZONATATE 100 MG CAP PO PRN (14:30)
[2016-11-18] MEDS ORDERED: IOHEXOL 350 MG/ML 100 ML BTL (for Cath Lab) OTHER ONE (18:25)
--- NOTE | 2016-11-18 19:15 | EKG ---
Date Performed: 11/17/2016 Time Performed: 20:14:57 PTAGE: 46 years EKG: Sinus rhythm LEFT ATRIAL ENLARGEMENT LEFT VENTRICULAR HYPERTROPHY AND ST-T CHANGE ABNORMAL ECG PREVIOUS TRACING : 10/12/2016 10.28 Compared to prior tracing no significant change DOCTOR: Bruno Harrell Interpretating Date/Time 11/18/2016 19:15:26
[2016-11-18] MEDS ORDERED: HEPARIN-NS/PF INJ 500 ML ONE (20:26)
[2016-11-18] MEDS ORDERED: MIDAZOLAM HCL 5 MG/5 ML VIAL ONE (20:27)
[2016-11-18] MEDS ORDERED: PRAVASTATIN SOD 80 MG TAB PO SCH (21:00)
[2016-11-18] MEDS ORDERED: SODIUM CHLOR 0.9% 1000 ML INJ 500 ML IV SCH (21:22)
[2016-11-18 22:50] LABS: HDL CHOLESTEROL 25.5 MG/DL (40.0-60.0)
[2016-11-19] VITALS (17 sets, daily range): BP systolic 148–158; BP diastolic 81–99; PULSE 65–93; RESP 14–17; TEMP 98.5–98.9; O2SAT 95–96
[2016-11-19] MEDS: METOPROLOL TARTRATE 25 MG TAB PO SCH ×2 (00:04→08:57)
[2016-11-19] MEDS: SODIUM CHLOR 0.9% 1000 ML INJ 1,000 ML IV SCH (04:22)
[2016-11-19] MEDS: ISOSORBIDE MONONITRATE 30 MG TAB PO SCH (05:25)
[2016-11-19 07:29] LABS: BICARBONATE 22.2 MEQ/L (21.0-32.0)
[2016-11-19 07:44] LABS: POTASSIUM 3.7 MEQ/L (3.5-5.1)
[2016-11-19 08:22] LABS: AUTOMATED NEUTROPHIL # 5.9 TH/MM3 (1.8-7.7); BASOPHIL # 0.1 TH/MM3 (0-0.2); BASOPHIL % 0.6 % (0.0-2.0); EOSINOPHIL # 0.5 TH/MM3 (0-0.4); EOSINOPHIL % 5.5 % (0.0-4.0); HEMATOCRIT 36.9 % (39.0-51.0); LYMPH % 14.5 % (9.0-44.0); LYMPHOCYTE # 1.2 TH/MM3 (1.0-4.8); MEAN CELL VOLUME 86.8 FL (80.0-100.0); MEAN CORPUSCULAR HGB CONC 34.6 % (32.0-36.0); MONO % 10.3 % (0.0-8.0); NEUT % 69.1 % (16.0-70.0); PLATELET COUNT 140 TH/MM3 (150-450); RED BLOOD COUNT 4.25 MIL/MM3 (4.50-5.90); RED CELL DISTRIBUTION WIDTH 14.5 % (11.6-17.2); WHITE BLOOD COUNT 8.6 TH/MM3 (4.0-11.0)
--- NOTE | 2016-11-19 08:32 | HHI.PR ---
Subjective Remarks No events overnight. Vital signs remained stable. Patient underwent cardiac catheterization yesterday evening. He was found to be without obstruction and did not require intervention. He has been cleared for discharge to home from a cardiology standpoint. Patient endorses that chest pain has resolved. Cough is improving. Denies any shortness of breath or fevers. Objective Vitals Vital Signs Date Time Temp Pulse Resp B/P Pulse Ox O2 Delivery O2 Flow Rate FiO2 11/19/16 08:00 93 11/19/16 07:17 Room Air 11/19/16 07:00 98.7 88 17 158/99 95 11/19/16 07:00 87 11/19/16 06:00 86 11/19/16 05:00 76 11/19/16 04:00 76 11/19/16 03:00 75 11/19/16 03:00 98.9 70 14 155/81 95 11/19/16 02:00 74 11/19/16 01:00 78 11/19/16 00:00 78 11/18/16 23:00 98.8 80 14 168/90 95 11/18/16 23:00 77 11/18/16 22:00 78 11/18/16 20:00 80 11/18/16 19:00 78 11/18/16 19:00 97 Room Air 11/18/16 19:00 98.4 77 14 161/93 97 11/18/16 18:00 74 11/18/16 17:00 76 11/18/16 16:00 74 11/18/16 15:00 77 11/18/16 15:00 98.6 79 16 142/87 95 11/18/16 14:00 77 11/18/16 13:00 69 11/18/16 12:00 64 11/18/16 11:00 98.5 73 17 152/96 97 11/18/16 11:00 68 11/18/16 10:00 82 11/18/16 09:00 78 I/O 11/18/16 11/18/16 11/18/16 11/19/16 11/19/16 11/19/16 07:00 15:00 23:00 07:00 15:00 23:00 Intake Total 300 ml 2127 ml 1260 ml Output Total 400 ml 1850 ml 300 ml Balance -100 ml 277 ml 960 ml Intake Oral 460 ml IV Total 300 ml 2127 ml 800 ml Output Urine Total 400 ml 1850 ml 300 ml # Bowel Movements 0 Result Diagram: 11/18/16 1047 11/19/16 0645 Objective Remarks GEN: Well-developed, well-nourished patient. No acute distress. Appears comfortable. CV: Regular rate and rhythm without obvious murmurs LUNGS: Clear to auscultation bilaterally. Normal respiratory effort. No wheezes , rales, rhonchi. GI: Soft, nontender, nondistended. No palpable masses. Bowel sounds WNL. EXT: No edema. SKIN: dressing CDI NEURO/PSYCH: Afocal. Awake, alert, and oriented x3. Appropriate insight and judgment. A/P Problem List: (1) Unstable angina ICD Code: I20.0 Status: Acute (2) Renal insufficiency ICD Code: N28.9 Status: Acute (3) HTN (hypertension) ICD Code: I10 Status: Acute (4) CHF (congestive heart failure) ICD Code: I50.9 Status: Acute Assessment and Plan 45-year-old male with a past medical history of CAD status post stenting 3 and CHF, EF 45-50% who presents with persistent chest pain x1 week 1. CP: c/o chest pain x1 wk, h/o CAD s/p Cardiac Cath 05/2016 w/ PCI to Mid LAD and JAVED placement, following w/ Dr. Lima as outpatient, scheduled for repeat Stress Test in May. Trop negative, however EKG w/ new ST Depressions. Symptoms improved on Heparin GTT. Cardiac cath showed patent vessels. No further intervention. Suspect possible NSTEMI which resolved with Heparin +/- component of post-tussive MSK irritation. Will proceed with D/C to home with plan to follow-up with coater operator next week. 2. HTN: BP 150's systolic, continue home medications, monitor BP. 3. URI: likely viral. CXR reassuring. Tessalon pearls PRN cough 4. Renal Insufficiency: Acute on Chronic. Creatinine 1.57 -> 1/35 , Monitor renal function post-cath. 5. CHF: Chronic. Systolic. Echo 06/07/16 w/ EF 45-50%. Continue home Lasix , Aldactone, caution w/ renal function Discharge Planning Discharge to home today [place] Winslow MD R3 Nov 19, 2016 08:32
[2016-11-19] MEDS ORDERED: BENZ100 PO (08:34)
[2016-11-19] MEDS ORDERED: ZETI10TA5 PO (08:34)
--- NOTE | 2016-11-19 08:35 | HHI.DCPOC ---
Discharge Care Plan Diagnosis: (1) NSTEMI (non-ST elevated myocardial infarction) (2) URI (upper respiratory infection) Goals to Promote Your Health * To prevent worsening of your condition and complications * To maintain your health at the optimal level Directions to Meet Your Goals Take your medications as prescribed Follow your dietary instruction Follow activity as directed Keep your appointments as scheduled Take your immunizations and boosters as scheduled If your symptoms worsen call your PCP, if no PCP go to Urgent Care Center or Emergency Room Smoking is Dangerous to Your Health. Avoid second hand smoke Call the 24-hour hour crisis hotline for domestic abuse at Montana Winslow MD R3 Nov 19, 2016 08:35
[2016-11-19] MEDS: SODIUM CHLORIDE 0.9% FLUSH 10 ML FLUSH IV FLUSH SCH (08:55)
[2016-11-19] MEDS: SPIRONOLACTONE 25 MG TAB PO SCH (08:56)
[2016-11-19] MEDS: FUROSEMIDE 40 MG TAB PO SCH (08:56)
[2016-11-19] MEDS ORDERED: EZETIMIBE 10 MG TAB PO SCH (09:00)
[2016-11-19 09:10] LABS: HEMO FLAGS AUTO DIFF
[2016-11-19 09:57] LABS: PLATELET ESTIMATE SMEAR LOW (NORMAL); PLATELET MORPHOLOGY NORMAL (NORMAL); SCAN/DIFF AUTO DIFF CONFIRMED
--- NOTE | 2016-11-19 15:21 | PD.CARD.PN ---
Subjective Subjective Remarks No CP or SOB, feels much better Objective Medications Current Medications Medications (Trade) Dose Ordered Sig/Rochelle Route Start Time Stop Time Status Last Admin Metoprolol Tartrate 12.5 mg 12.5 mg BID PO 11/18/16 09:00 11/19/16 08:57 (NS 1000 ml Inj) 1,000 ml @ 100 mls/hr Q10H IV 11/17/16 22:22 11/18/16 17:00 (NS Flush) 2 ml UNSCH PRN IV FLUSH 11/17/16 22:30 (NS Flush) 2 ml BID IV FLUSH 11/18/16 09:00 11/19/16 08:55 (Zofran Inj) 4 mg Q6H PRN IVP 11/17/16 22:30 11/18/16 12:38 (Dulcolax Supp) 10 mg DAILY PRN RECTAL 11/17/16 22:30 (Tylenol) 650 mg Q6H PRN PO 11/17/16 22:30 (Colp 5-325 Mg) 1 tab Q4H PRN PO 11/17/16 22:30 11/18/16 09:40 (Dilaudid Pf Inj) 1 mg Q3H PRN IV 11/17/16 22:30 (Norvasc) 10 mg DAILY PO 11/18/16 09:00 11/19/16 08:57 (Lasix) 40 mg DAILY PO 11/18/16 09:00 11/19/16 08:56 (Imdur) 30 mg DAILY@07 PO 11/18/16 07:00 11/19/16 05:25 (Pravachol) 80 mg HS PO 11/18/16 21:00 11/19/16 00:04 (Aldactone) 25 mg DAILY PO 11/18/16 09:00 11/19/16 08:56 (Tessalon) 100 mg TID PRN PO 11/18/16 14:30 11/19/16 08:59 (Zetia) 10 mg DAILY PO 11/19/16 09:00 11/19/16 08:56 Vital Signs / I&O Vital Signs Date Time Temp Pulse Resp B/P Pulse Ox O2 Delivery O2 Flow Rate FiO2 11/19/16 14:00 78 11/19/16 13:00 70 11/19/16 12:00 67 11/19/16 11:09 98.6 71 17 148/93 95 11/19/16 11:00 65 11/19/16 10:00 71 11/19/16 09:00 86 11/19/16 08:00 93 11/19/16 07:17 Room Air 11/19/16 07:00 98.7 88 17 158/99 95 11/19/16 07:00 87 11/19/16 06:00 86 11/19/16 05:00 76 11/19/16 04:00 76 11/19/16 03:00 75 11/19/16 03:00 98.9 70 14 155/81 95 11/19/16 02:00 74 11/19/16 01:00 78 11/19/16 00:00 78 11/18/16 23:00 98.8 80 14 168/90 95 11/18/16 23:00 77 11/18/16 22:00 78 11/18/16 20:00 80 11/18/16 19:00 78 11/18/16 19:00 97 Room Air 11/18/16 19:00 98.4 77 14 161/93 97 11/18/16 18:00 74 11/18/16 17:00 76 11/18/16 16:00 74 I/O 11/18/16 11/18/16 11/18/16 11/19/16 11/19/16 11/19/16 07:00 15:00 23:00 07:00 15:00 23:00 Intake Total 300 ml 2127 ml 1260 ml Output Total 400 ml 1850 ml 300 ml Balance -100 ml 277 ml 960 ml Intake Oral 460 ml IV Total 300 ml 2127 ml 800 ml Output Urine Total 400 ml 1850 ml 300 ml # Bowel Movements 0 Physical Exam GENERAL: In NAD SKIN: Warm and dry. HEAD: Normocephalic. EYES: No scleral icterus. No injection or drainage. NECK: Supple, trachea midline. No JVD or lymphadenopathy. CARDIOVASCULAR: Regular rate and rhythm without murmurs, gallops, or rubs. RESPIRATORY: Breath sounds equal bilaterally. No accessory muscle use. GASTROINTESTINAL: Abdomen soft, non-tender, nondistended. MUSCULOSKELETAL: No cyanosis, or edema. Groin stable Laboratory Laboratory Tests Test 11/18/16 11/19/16 22:00 06:45 Triglycerides Level 343 MG/DL Cholesterol Level 144 MG/DL LDL Cholesterol 50 MG/DL HDL Cholesterol 25.5 MG/DL Cholesterol/HDL Ratio 5.64 RATIO White Blood Count 8.6 TH/MM3 Red Blood Count 4.25 MIL/MM3 Hemoglobin 12.7 GM/DL Hematocrit 36.9 % Mean Corpuscular Volume 86.8 FL Mean Corpuscular Hemoglobin 30.0 PG Mean Corpuscular Hemoglobin 34.6 % Concent Red Cell Distribution Width 14.5 % Platelet Count 140 TH/MM3 Mean Platelet Volume 9.5 FL Neutrophils (%) (Auto) 69.1 % Lymphocytes (%) (Auto) 14.5 % Monocytes (%) (Auto) 10.3 % Eosinophils (%) (Auto) 5.5 % Basophils (%) (Auto) 0.6 % Neutrophils # (Auto) 5.9 TH/MM3 Lymphocytes # (Auto) 1.2 TH/MM3 Monocytes # (Auto) 0.9 TH/MM3 Eosinophils # (Auto) 0.5 TH/MM3 Basophils # (Auto) 0.1 TH/MM3 CBC Comment AUTO DIFF Differential Comment AUTO DIFF CONFIRMED Platelet Estimate LOW Platelet Morphology Comment NORMAL Sodium Level 138 MEQ/L Potassium Level 3.7 MEQ/L Chloride Level 104 MEQ/L Carbon Dioxide Level 22.2 MEQ/L Anion Gap 12 MEQ/L Blood Urea Nitrogen 13 MG/DL Creatinine 1.41 MG/DL Estimat Glomerular Filtration 54 ML/MIN Rate Random Glucose 146 MG/DL Calcium Level 8.3 MG/DL Imaging Last Impressions Chest X-Ray 11/17/162026 Signed Impressions: Service Date/Time: Thursday, November 17, 2016 20:46 - CONCLUSION: Cardiomegaly. Andrea Bates MD Assessment and Plan Problem List: (1) Unstable angina (2) CAD (coronary artery disease) (3) Status post insertion of drug-eluting stent into left anterior descending artery for coronary artery disease (4) HTN (hypertension) (5) Renal insufficiency Assessment and Plan Cath w patent stents and severe disease in small distal apical LAD. Continue Plavix and ASA. Continue tx for angina, add Ranexa (had CHÁVEZ w NTG). Intensify aggressive RF modification, add Zetia. DC home. F/u w Dr. Manley within 1 week. Bruno Harrell MD Nov 19, 2016 15:20
[2016-11-19] MEDS ORDERED: IOHEXOL 350 MG/ML 50 ML BTL (for Cath Lab) OTHER ONE (15:53)
[2016-11-20] MEDS ORDERED: ZETI10TA5 PO (13:26)
--- NOTE | 2016-11-20 13:30 | MA ---
cc: BRII HERNANDEZ DATE: 11/20/2016 INDICATION Unstable angina, class IV angina, coronary artery disease with history of coronary stenting, cardiomyopathy. PROCEDURE PERFORMED 1. Retrograde left heart catheterization with left ventriculography and selective coronary angiography. 2. Moderate sedation. ACCESS SITE Right femoral artery. EQUIPMENT USED 5-Pashto pigtail catheter, 5-Pashto JL5 and AR modified coronary artery catheters. MEDICATIONS Versed IV, Fentanyl IV. CONTRAST Omnipaque 105 cc. COMPLICATIONS None. ESTIMATED BLOOD LOSS Less than 10 cc. METHOD OF HEMOSTASIS Manual compression. RESULTS HEMODYNAMICS Heart rate 75 beats per minute. Left ventricular end-diastolic pressure 12 mmHg. Left ventricle 150/12. Aorta 155/90/117. LEFT VENTRICULOGRAPHY Left ventricular ejection fraction 45%. Wall motion with mild global hypokinesis. No mitral regurgitation. CORONARY ANGIOGRAPHY The left main coronary is patent. The left anterior descending artery has patent stents in the proximal portion, 60% stenosis in the mid portion and 80% stenosis in a small caliber distal portion. The first diagonal artery is small and patent. The left circumflex artery has 40% stenosis in the distal portion. It is a dominant vessel. OM1 patent. OM-2 patent. Left PDA patent. The right coronary artery is a non-dominant vessel which is patent. DIAGNOSIS 1. Moderate to severe coronary artery disease with patent stents in the proximal left anterior descending artery and severe stenosis of a distal small caliber left anterior descending artery. 2. Mild left ventricular systolic dysfunction. DISPOSITION Mr. Patino will be monitored on telemetry after the procedure. We will continue to intensify aggressive modification of his cardiac risk factors. We will continue therapy for angina. He will follow up with Dr. Manley, his primary global supply chain vice president, in his office after discharge. MD NEVAEH Joyce/PAVITHRA /9:21 PM /1:15 PM NUBIA
[2016-11-20] MEDS ORDERED: PERC5TAB12 PO (13:54)
[2016-12-06] MEDS ORDERED: POTA-163 PO (09:10)
[2016-12-06] MEDS ORDERED: CARV12.52 PO (09:10)
[2017-01-18] MEDS ORDERED: OXYB5TAB10 PO (13:59)
[2017-01-22] MEDS ORDERED: OXYB5TAB10 PO (14:55)
== END 2016-11-19 15:54 | disposition home or self-care (01) | DRG 287 ==
LOC: NEPC 19:47 → NEDA 22:21 → HCIS 11-18 02:09
PROVIDERS: ADMIT Family Medicine Sports Medicine; ATTEND Family Medicine Sports Medicine
PROC: 4A023N7 Measurement of Cardiac Sampling and Pressure, Left Heart, Percutaneous Approach (ICD-10-PCS; principal; 2016-11-18)
PROC: B2111ZZ Fluoroscopy of Multiple Coronary Arteries using Low Osmolar Contrast (ICD-10-PCS; 2016-11-18)
PROC: B2151ZZ Fluoroscopy of Left Heart using Low Osmolar Contrast (ICD-10-PCS; 2016-11-18)
DX: I25.110 Atherosclerotic heart disease of native coronary artery with unstable angina pectoris (principal); I13.0 Hypertensive heart and chronic kidney disease with heart failure and stage 1 through stage 4 chronic kidney disease, or unspecified chronic kidney disease; I42.9 Cardiomyopathy, unspecified; E11.22 Type 2 diabetes mellitus with diabetic chronic kidney disease; I50.9 Heart failure, unspecified; N18.9 Chronic kidney disease, unspecified; E78.00 Pure hypercholesterolemia, unspecified; G47.30 Sleep apnea, unspecified; I25.2 Old myocardial infarction; J06.9 Acute upper respiratory infection, unspecified; K21.9 Gastro-esophageal reflux disease without esophagitis; K59.00 Constipation, unspecified; F32.9 Major depressive disorder, single episode, unspecified; Z86.73 Personal history of transient ischemic attack (TIA), and cerebral infarction without residual deficits; Z91.19 Patient's noncompliance with other medical treatment and regimen; Z95.5 Presence of coronary angioplasty implant and graft
CPT/HCPCS: 71010; 80048; 80053; 80061; 82550; 83735; 84484; 85002; 85025; 85027; 85610; 85730; 93005; 93458; 99291; C1769; C1893; J1644; J2250; J2405; J3010; J7030; Q9967

== ENCOUNTER → 2016-12-07 | Day surgery (SDC) | payer OTHER ==
[~2016-12-07] VITALS: Ht 177.8 cm; Wt 121.9 kg
[~2016-12-07] MED LIST changes: +ACETAMINOPHEN 1000 MG/100 ML VIAL IV ONE; +AMPICILLIN 1 GM/NS 100 ML IV SCH; +BELLADONNA ALKALOIDS/OPIUM 60 MG SUPP RECTAL ONE; +BENZ100 PO; -CARV12.5 PO; +CARV12.52 PO; +CHLORHEXIDINE GLUCONATE 2 % 1 PACK (2 CLOTHS) TOPICAL PRN; -CIPR-9 PO; +DO NOT ADM ANY ANTICOAGULANT DRUGS PRN; +FAMOTIDINE 20 MG/2 ML VIAL ONE; +FURO20TA PO; +FUROSEMIDE 40 MG/4 ML VIAL ONE; +GENTAMICIN INJ 160 MG in SODIUM CHLORIDE 0.9% INJ 100 ML IV SCH; +HYDR-2374 PO; +HYDR-3583 PO; +HYDROmorphone HCL PF 1 MG/ML VIAL IV PUSH PRN; +INSULIN HUMAN REGULAR 1,000 UNITS/10 ML VIAL SQ PRN; +IOHEXOL 350 MG/ML 50 ML BTL (for RAD DIAG) ONE; +LACTATED RINGER'S 1000 ML IV PRN; +METOPROLOL TARTRATE 25 MG TAB PO PRN; +MIDAZOLAM HCL 2 MG/2 ML VIAL ONE; +NEOSTIGMINE 3 MG/3 ML SYR IV ONE; +ONDANSETRON HCL 4 MG/2 ML VIAL IV PUSH ONE; +ONDANSETRON HCL 4 MG/2 ML VIAL IV PUSH PRN; +OXYB5TAB10 PO; +PHENYLEPH/NS 1000 MCG/10 ML SYR IV ONE; +POTA-163 PO; +POTA10TA2 PO; -POTA20TA5 PO; +POVIDONE IODINE 5% (ANTISEPSIS KIT) 4 APPLICATIONS EACH NARE PRN; +PROMETHAZINE INJ 25 MG/ML VIAL ONE; +PROPOFOL 200 MG/20 ML AMP IV ONE; +SODIUM CHLOR 0.9% 250 ML INJ 250 ML IV ONE; +SODIUM CHLORID 0.9% 500 ML IV PRN; +TAMS5CAP PO; +ZETI10TA5 PO; +ZOFR4TAB3 SL; +fentaNYL CITRATE 250 MCG/5 ML AMP ONE; +oxyCODONE/ACETAMINOPHEN 5 MG/325 MG TAB PO PRN
[2016-12-07 05:53] VITALS: BP 156/99; PULSE 73; RESP 20; TEMP 98.3; O2SAT 97
--- NOTE | 2016-12-07 09:07 | PD.OP ---
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 Patient had a right double-J stent in the past for a proximal ureteral stone. He underwent right extraportal shockwave lithotripsy and on follow-up imaging calcifications were noted in the right lower pole. Decision made to bring the patient to the operating room to undergo cystoscopy with right ureteroscopy and possible laser lithotripsy with stone extraction and right stent exchange. Risk and benefits were discussed preoperatively he is willing to proceed. Patient was brought to the operating room identified by myself as Milo Patino. He is placed in the dorsal lithotomy position, prepped in the usual sterile fashion, received preprocedure antibiotics, general endotracheal tube anesthesia was administered. 22 Liberian cystoscope was inserted in the bladder acharya cystoscopy did not reveal any abnormalities. The right ureteral stent was identified and using an alligator grasper it was brought out to the urethral meatus. A 0.35 sensor wire was then passed through the stent with the wire in good position in the kidney. A navigator 46 cm ureteral access sheath was then passed over the wire and the wire was removed. The flexible ureteroscope was then passed through the ureteral access sheath at the level of the UPJ and then into the kidney. Once in the right lower pole there appeared to be a Donaldo's plaque without any evidence of renal calculi identified. Retrograde study was then performed which did not show any filling defects. The 0.35 sensor wire was then passed through the ureteral access sheath and the access sheath was then removed. The cystoscope was then backloaded over the wire and then a 22 cm 6 Liberian right double-J stent was placed and left in good position with the string taped to the penis. The bladder was evacuated and he was woken transrectal stable condition. He will follow-up tomorrow in the office string pole and stent removed at that time. Adolfo Fofana DO December 07, 2016 09:07
[2016-12-07 11:57] VITALS: BP 120/78; PULSE 63; RESP 18; TEMP 97.6; O2SAT 96
== END | disposition home or self-care (01) ==
LOC: HSDC 05:15
PROVIDERS: ATTEND Urology
DX: N20.0 Calculus of kidney (principal); I70.1 Atherosclerosis of renal artery; N28.89 Other specified disorders of kidney and ureter
CPT/HCPCS: 00910; 52332; 52351; 74420; C1769; C2617; J0131; J0290; J1580; J2250; J2370; J2405; J2550; J2710; J3010; J7050; J7120; Q9967; J1940

== ENCOUNTER 2017-01-08 09:20 | Emergency (ER) | payer OTHER ==
[~2017-01-08] VITALS: Ht 182.9 cm; Wt 120.0 kg
[~2017-01-08 09:20] MED LIST changes: -ACETAMINOPHEN 1000 MG/100 ML VIAL IV ONE; -AMPICILLIN 1 GM/NS 100 ML IV SCH; -BELLADONNA ALKALOIDS/OPIUM 60 MG SUPP RECTAL ONE; -CHLORHEXIDINE GLUCONATE 2 % 1 PACK (2 CLOTHS) TOPICAL PRN; -DO NOT ADM ANY ANTICOAGULANT DRUGS PRN; -FAMOTIDINE 20 MG/2 ML VIAL ONE; -FURO20TA PO; -FUROSEMIDE 40 MG/4 ML VIAL ONE; -GENTAMICIN INJ 160 MG in SODIUM CHLORIDE 0.9% INJ 100 ML IV SCH; -HYDR-2374 PO; -HYDR-3583 PO; -HYDROmorphone HCL PF 1 MG/ML VIAL IV PUSH PRN; -INSULIN HUMAN REGULAR 1,000 UNITS/10 ML VIAL SQ PRN; -IOHEXOL 350 MG/ML 50 ML BTL (for RAD DIAG) ONE; -LACTATED RINGER'S 1000 ML IV PRN; -METOPROLOL TARTRATE 25 MG TAB PO PRN; -MIDAZOLAM HCL 2 MG/2 ML VIAL ONE; -NEOSTIGMINE 3 MG/3 ML SYR IV ONE; -ONDANSETRON HCL 4 MG/2 ML VIAL IV PUSH ONE; -ONDANSETRON HCL 4 MG/2 ML VIAL IV PUSH PRN; -OXYB5TAB10 PO; -PHENYLEPH/NS 1000 MCG/10 ML SYR IV ONE; -POTA10TA2 PO; -POVIDONE IODINE 5% (ANTISEPSIS KIT) 4 APPLICATIONS EACH NARE PRN; -PROMETHAZINE INJ 25 MG/ML VIAL ONE; -PROPOFOL 200 MG/20 ML AMP IV ONE; -SODIUM CHLOR 0.9% 250 ML INJ 250 ML IV ONE; -SODIUM CHLORID 0.9% 500 ML IV PRN; -TAMS5CAP PO; -ZOFR4TAB3 SL; -fentaNYL CITRATE 250 MCG/5 ML AMP ONE; -oxyCODONE/ACETAMINOPHEN 5 MG/325 MG TAB PO PRN
[2017-01-08 09:22] VITALS: BP 226/114; PULSE 70; RESP 17; TEMP 98.2; O2SAT 98
[2017-01-08] MEDS ORDERED: HYDROmorphone HCL PF 1 MG/ML VIAL IVS ONE (10:30)
[2017-01-08] MEDS ORDERED: ONDANSETRON HCL 4 MG/2 ML VIAL IVP ONE (10:30)
[2017-01-08] MEDS ORDERED: SODIUM CHLORIDE 0.9% FLUSH 10 ML FLUSH IV FLUSH PRN (10:30)
[2017-01-08 10:35] VITALS: RESP 18; O2SAT 98
[2017-01-08 10:58] LABS: AUTOMATED NEUTROPHIL # 5.7 TH/MM3 (1.8-7.7); BASOPHIL % 0.3 % (0.0-2.0); EOSINOPHIL # 0.3 TH/MM3 (0-0.4); EOSINOPHIL % 4.4 % (0.0-4.0); HEMATOCRIT 37.9 % (39.0-51.0); HEMO FLAGS DIFF FINAL; LYMPHOCYTE # 0.9 TH/MM3 (1.0-4.8); MEAN CELL VOLUME 86.1 FL (80.0-100.0); MEAN CORPUSCULAR HEMOGLOBIN 30.2 PG (27.0-34.0); MEAN CORPUSCULAR HGB CONC 35.1 % (32.0-36.0); NEUT % 78.3 % (16.0-70.0); PLATELET COUNT 182 TH/MM3 (150-450); RED CELL DISTRIBUTION WIDTH 14.3 % (11.6-17.2); WHITE BLOOD COUNT 7.2 TH/MM3 (4.0-11.0)
[2017-01-08 11:14] LABS: BICARBONATE 23.7 MEQ/L (21.0-32.0); POTASSIUM 4.1 MEQ/L (3.5-5.1)
[2017-01-08 12:00] VITALS: BP 181/96; PULSE 66; RESP 17; TEMP 97.8; O2SAT 98
--- NOTE | 2017-01-08 12:11 | RADRPT ---
EXAM DATE/TIME: 01/08/2017 11:13 [facility] COMPARISON: No previous studies available for comparison. INDICATIONS : Rule out renal calculi. Nausea. Severe left abdominal pain radiating to back and groin. ORAL CONTRAST: No oral contrast ingested. RADIATION DOSE: 8.54 CTDIvol (mGy) MEDICAL HISTORY : Renal calculi. Cardiovascular disease Hypertension. CHF, polycystic kidney disease SURGICAL HISTORY : Cholecystectomy. ENCOUNTER: Initial ACUITY: 1 day PAIN SCALE: 9/10 LOCATION: Left middle abdomen TECHNIQUE: Volumetric scanning of the abdomen and pelvis was performed. Using automated exposure control and ad justment of the mA and/or kV according to patient size, radiation dose was kept as low as reasonably achievable to obtain optimal diagnostic quality images. FINDINGS: There is compensated cardiomegaly. Lung bases are clear. The liver, spleen, pancreas, and adrenals are unremarkable. Gallbladder surgically absent. There are multiple cysts in both the right and left kidneys. Some of these cysts are spontaneously d ense. A cyst in the lower pole of the right kidney does contain either calcification of septa or renal calculi. The left kidney is prominent when compared to the right. There is a 4 mm stone in the middle third o f the left ureter, triangular shaped with the narrow end pointing down. This is causing moderate obstruction. There are no calcifications in the right ureter. Pelvic contents are unremarkable. CONCLUSION: Obstructing stone middle third of the left ureter. Multiple cysts are seen in both kidneys with scat tered calcifications in the wall of the cyst as well as in the cyst themselves. This is an incomplete evaluation of the kidneys. Once the renal stone has been taken care of CT scan without and with contrast would be of benefit for further evaluation. The patient may have a variant of polycystic kidney disease. Correlation with renal function is dinorah mireles. Sudhir Lowe MD FACR on January 08, 2017 at 11:38 Board Certified Radiologist. This report was verified electronically.
[2017-01-08 12:46] LABS: BLOOD, URINE SMALL (NEG); COMMENT (UR) CULT NOT INDICATED; CULTURE IF INDICATED CULT NOT INDICATED; GLUCOSE,URINE NEG (NEG); KETONE, URINE NEG (NEG); MUCUS URINE FEW /lpf (OCC); NITRITE,URINE NEG (NEG); PH, URINE 5.5 (5.0-8.5); URINE COLOR LIGHT-YELLOW (YELLW/STRAW)
[2017-01-08] MEDS ORDERED: TAMS5CAP PO (13:24)
[2017-01-08] MEDS ORDERED: PERC5TAB12 PO (13:24)
[2017-01-08] MEDS ORDERED: ZOFR4TAB3 SL (13:24)
--- NOTE | 2017-01-08 13:24 | PD ---
HPI Chief Complaint: Abdominal Pain Time Seen by Provider: 10:11 Travel History International Travel<30 days: No Contact w/Intl Traveler<30days: No Traveled to known affect area: No History of Present Illness HPI 46-year-old male has left flank pain radiating to the groin. It's been present for about 1 week. Became severe over night. It woke him up from sleep several hours prior to ER arrival. He reports dry heaving. He can find no position of comfort. He reports he always has hematuria. No fever. PFSH Past Medical History Arthritis: Yes Depression: Yes Cancer: No Cardiac Catheterization: Yes Cardiovascular Problems: Yes (chf, htn, cad) High Cholesterol: Yes Chest Pain: Yes Congestive Heart Failure: Yes Cerebrovascular Accident: Yes (TIA X 2) Diabetes: Yes (BORDERLINE) Patient Takes Glucophage: No Diminished Hearing: No Endocrine: No Gastrointestinal Disorders: Yes (ACID REFLUX AT TIMES) GERD: Yes Genitourinary: No Headaches: Yes Hepatitis: No Hiatal Hernia: No Hypertension: Yes Immune Disorder: No Musculoskeletal: Yes (CERVICAL BONE SPURS, LOWER BACK PAIN) Neurologic: Yes (2 TIA) Reproductive: No Respiratory: No Migraines: Yes Myocardial Infarction: Yes (X 6) Pneumonia: Yes Sleep Apnea: Yes Thyroid Disease: No Tetanus Vaccination: < 5 Years Influenza Vaccination: No Past Surgical History Abdominal Surgery: Yes (CHOLECYSTECTOMY) AICD: No Body Medical Devices: 3 CARDIAC STENTS & STENT RIGHT KIDNEY Cardiac Surgery: No Cholecystectomy: Yes Coronary Stent: Yes (X 3) Ear Surgery: No Endocrine Surgery: No Eye Surgery: No Genitourinary Surgery: Yes (MULTIPLE LITHOTRIPSY) Gynecologic Surgery: No Joint Replacement: No Oral Surgery: Yes (TONSILECTOMY) Pacemaker: No Thoracic Surgery: No Tonsillectomy: Yes Other Surgery: Yes (gallbladder, ) Social History Alcohol Use: No Tobacco Use: No Substance Use: No (PT DENIES) Allergies-Medications (Allergen,Severity, Reaction): Coded Allergies: Lipitor (Verified Allergy, Severe, Rash, 01/08/17) LEGS Zocor (Verified Allergy, Severe, Rash, 01/08/17) LEGS HMG-CoA Reductase Inhibitors (Verified Allergy, Unknown, Cramping, 01/08/17 ) Morphine (Verified Adverse Reaction, Severe, Constipation, 01/08/17) Reported Meds & Prescriptions Reported Meds & Active Scripts Active Percocet (Oxycodone-Acetaminophen) 5-325 mg Tab 1-2 Tab PO Q6H PRN Zofran Odt (Ondansetron Odt) 4 Mg Tab 4 Mg SL Q8HR PRN Flomax (Tamsulosin HCl) 0.4 Mg Cap 0.4 Mg PO HS Percocet (Oxycodone-Acetaminophen) 5-325 mg Tab 1-2 Tab PO Q6H PRN Zetia (Ezetimibe) 10 Mg Tab 10 Mg PO DAILY Norvasc (Amlodipine Besylate) 10 Mg Tab 10 Mg PO DAILY Pravachol (Pravastatin) 80 Mg Tab 80 Mg PO HS Lisinopril 20 Mg Tab 40 Mg PO DAILY Lasix (Furosemide) 40 Mg Tab 40 Mg PO DAILY Reported Potassium Chloride ER (Potassium Chloride) 20 Meq Tab 20 Meq PO BID Carvedilol 12.5 Mg Tab 12.5 Mg PO BID Plavix (Clopidogrel Bisulfate) 75 Mg Tab 75 Mg PO DAILY Aldactone (Spironolactone) 25 Mg Tab 25 Mg PO DAILY Isosorbide Mononitrate ER (Isosorbide Mononitrate) 30 Mg Sameer 30 Mg PO HS Nitrostat SL (Nitroglycerin) 0.4 Mg Subl 0.4 Mg SL DIRECTED PRN 1 tablet under the tongue as needed for chest pain. Repeat every 5 minutes for a total of 3 DOSES or call 911 if NO relief. Aspirin 81 (Aspirin) 81 Mg Tabdr 81 Mg PO DAILY Review of Systems Except as stated in HPI: all other systems reviewed are Neg Physical Exam Narrative GENERAL: 46-year-old male pleasant well-nourished well-developed SKIN: Focused skin assessment warm/dry. HEAD: Atraumatic. Normocephalic. EYES: Pupils equal and round. No scleral icterus. No injection or drainage. ENT: No nasal bleeding or discharge. Mucous membranes pink and moist. NECK: Trachea midline. No JVD. CARDIOVASCULAR: Regular rate and rhythm. No murmur appreciated. RESPIRATORY: No accessory muscle use. Clear to auscultation. Breath sounds equal bilaterally. GASTROINTESTINAL: Soft. Minimal tenderness palpation left flank. MUSCULOSKELETAL: No obvious deformities. No clubbing. No cyanosis. No edema. NEUROLOGICAL: Awake and alert. No obvious cranial nerve deficits. Motor grossly within normal limits. Normal speech. PSYCHIATRIC: Appropriate mood and affect; insight and judgment normal. Data Data Last Documented VS Vital Signs Date Time Temp Pulse Resp B/P Pulse Ox O2 Delivery O2 Flow Rate FiO2 01/08/17 13:39 97.8 76 17 140/81 99 01/08/17 12:00 Room Air Vital signs reviewed Orders Basic Metabolic Panel (Bmp) (01/08/17 10:25) Complete Blood Count With Diff (01/08/17 10:25) Urinalysis - C+S If Indicated (01/08/17 10:25) Ct Abd/Pel W/O Iv Contrast (01/08/17 10:25) Iv Access Insert/Monitor (01/08/17 10:25) Ecg Monitoring (01/08/17 10:25) Oximetry (01/08/17 10:25) Ondansetron Inj (Zofran Inj) (01/08/17 10:30) Sodium Chloride 0.9% Flush (Ns Flush) (01/08/17 10:30) Hydromorphone Pf Inj (Dilaudid Pf Inj) (01/08/17 10:30) Labs Laboratory Tests Test 01/08/17 01/08/17 10:30 12:10 White Blood Count 7.2 TH/MM3 Red Blood Count 4.40 MIL/MM3 Hemoglobin 13.3 GM/DL Hematocrit 37.9 % Mean Corpuscular Volume 86.1 FL Mean Corpuscular Hemoglobin 30.2 PG Mean Corpuscular Hemoglobin 35.1 % Concent Red Cell Distribution Width 14.3 % Platelet Count 182 TH/MM3 Mean Platelet Volume 8.6 FL Neutrophils (%) (Auto) 78.3 % Lymphocytes (%) (Auto) 12.0 % Monocytes (%) (Auto) 5.0 % Eosinophils (%) (Auto) 4.4 % Basophils (%) (Auto) 0.3 % Neutrophils # (Auto) 5.7 TH/MM3 Lymphocytes # (Auto) 0.9 TH/MM3 Monocytes # (Auto) 0.4 TH/MM3 Eosinophils # (Auto) 0.3 TH/MM3 Basophils # (Auto) 0.0 TH/MM3 CBC Comment DIFF FINAL Differential Comment Sodium Level 142 MEQ/L Potassium Level 4.1 MEQ/L Chloride Level 110 MEQ/L Carbon Dioxide Level 23.7 MEQ/L Anion Gap 8 MEQ/L Blood Urea Nitrogen 14 MG/DL Creatinine 1.86 MG/DL Estimat Glomerular Filtration 39 ML/MIN Rate Random Glucose 163 MG/DL Calcium Level 8.6 MG/DL Urine Color LIGHT-YELLOW Urine Turbidity CLEAR Urine pH 5.5 Urine Specific [place] 1.009 Urine Protein 30 mg/dL Urine Glucose (UA) NEG mg/dL Urine Ketones NEG mg/dL Urine Occult Blood SMALL Urine Nitrite NEG Urine Bilirubin NEG Urine Urobilinogen LESS THAN 2.0 MG/DL Urine Leukocyte Esterase NEG Urine RBC 24 /hpf Urine WBC 1 /hpf Urine Mucus FEW /lpf Microscopic Urinalysis Comment CULT NOT INDICATED MDM Medical Decision Making Medical Screen Exam Complete: Yes Emergency Medical Condition: Yes Medical Record Reviewed: Yes Differential Diagnosis Constipation, Gastritis, Acute Cholecystitis, Biliary Colic, Pancreatitis, MORRIS , Hepatitis, Bowel Obstruction, Cystitis, Mesenteric Ischemia, AAA, Appendicitis , Renal Stone/Hydronephrosis, GERD, perforated viscous Narrative Course CBC & BMP Diagram 01/08/17 10:30 UA: Hematuria Last 24 hours Impressions Abdomen/Pelvis CT 01/08/17 1025 Signed Impressions: Service Date/Time: Sunday, January 08, 2017 11:13 - CONCLUSION: Obstructing stone middle third of the left ureter. Multiple cysts are seen in both kidneys with scattered calcifications in the wall of the cyst as well as in the cyst themselves. This is an incomplete evaluation of the kidneys. Once the renal stone has been taken care of CT scan without and with contrast would be of benefit for further evaluation. The patient may have a variant of polycystic kidney disease. Correlation with renal function is suggested. Sudhir Lowe MD FACR The patient is resting comfortably and feels better, is alert and in no distress. The patients results and examination findings were discussed. The repeat examination is unremarkable and benign. The history, exam, diagnostic testing, and current condition do not suggest any significant pathology to warrant further testing, continued ED treatment, admission, or surgical evaluation at this point. The vital signs have been stable. The patient does not have uncontrollable pain, intractable vomiting, or other significant symptoms. The patient's condition is stable and appropriate for discharge. The patient will pursue further outpatient evaluation with a primary care physician or other designated or consulting physician as indicated in the discharge instructions. The patient expressed understanding and was agreeable with this plan. Diagnosis Primary Impression: Chronic renal disease Qualified Code: N18.9 - Chronic kidney disease, unspecified CKD stage Additional Impressions: Ureterolithiasis Flank pain Hematuria Polycystic kidney disease Referrals: Adolfo Fofana DO 2 days Additional Instructions: You have a choice when it comes to health care, and we are glad that you chose [facility]. Hopefully, we have met your expectations on today's visit. You are welcome to return to [facility] at any time, as we are committed to meeting the health care needs of our community. Med/Other Pt SpecificInfo: Prescription(s) given Scripts Oxycodone-Acetaminophen (Percocet)5-325 mg Tab1-2 Tab PO Q6H PRN (PAIN SCALE 6 TO 10) #20 TAB Ref 0 Prov:Arturo Schneider MD 01/08/17 Ondansetron Odt (Zofran Odt)4 Mg Tab4 Mg SL Q8HR PRN (Nausea/Vomiting) #6 TAB Ref 0 Prov:Arturo Schneider MD 01/08/17 Tamsulosin (Flomax)0.4 Mg Cap0.4 Mg PO HS #6 CAP Ref 0 Prov:Arturo Schneider MD 01/08/17 Disposition: 01 DISCHARGE HOME Condition: Stable Arturo Schneider MD Jan 08, 2017 13:24
[2017-01-08 13:39] VITALS: BP 140/81; TEMP 97.8
[2017-01-18] MEDS ORDERED: OXYB5TAB10 PO (13:59)
[2017-01-22] MEDS ORDERED: OXYB5TAB10 PO (14:55)
== END 2017-01-08 13:39 | disposition home or self-care (01) ==
LOC: NEPE 09:20
DX: N18.9 Chronic kidney disease, unspecified (principal); N20.1 Calculus of ureter; I12.9 Hypertensive chronic kidney disease with stage 1 through stage 4 chronic kidney disease, or unspecified chronic kidney disease; Q61.3 Polycystic kidney, unspecified; E78.00 Pure hypercholesterolemia, unspecified; I50.9 Heart failure, unspecified; I25.10 Atherosclerotic heart disease of native coronary artery without angina pectoris
CPT/HCPCS: 74176; 80048; 81001; 85025; 96374; 96375; 99285; J1170; J2405

== ENCOUNTER 2017-01-09 15:40 | Emergency (ER) | payer OTHER ==
[~2017-01-09] VITALS: Ht 177.8 cm; Wt 130.0 kg
[~2017-01-09 15:40] MED LIST changes: -BENZ100 PO; +TAMS5CAP PO; +ZOFR4TAB3 SL
[2017-01-09 15:45] VITALS: BP 182/108; PULSE 105; RESP 16; TEMP 98.2; O2SAT 97
== END 2017-01-09 16:47 | disposition left against medical advice (07) ==
LOC: NED 15:40
DX: R10.9 Unspecified abdominal pain (principal); Z53.21 Procedure and treatment not carried out due to patient leaving prior to being seen by health care provider
CPT/HCPCS: 99281

== ENCOUNTER 2017-01-14 06:19 | Inpatient (IN) | payer OTHER ==
[~2017-01-14] VITALS: Ht 177.8 cm; Wt 125.9 kg
[2017-01-14] VITALS (12 sets, daily range): BP systolic 137–207; BP diastolic 66–115; PULSE 56–76; RESP 15–22; TEMP 97–98.1; O2SAT 96–99
[2017-01-14] MEDS ORDERED: SODIUM CHLOR 0.9% 1000 ML INJ 1,000 ML IV ONE (06:59)
[2017-01-14] MEDS ORDERED: SODIUM CHLORIDE 0.9% FLUSH 10 ML FLUSH IVF PRN (07:00)
--- NOTE | 2017-01-14 07:03 | PD ---
HPI Chief Complaint: Abdominal Pain Time Seen by Provider: 06:59 Travel History International Travel<30 days: No Contact w/Intl Traveler<30days: No Traveled to known affect area: No History of Present Illness HPI c/o left flank pain, 03/01, rad to front llq, sharp, assoc with nausea, no alleviating or aggravating factors, onset at 2am per pt, has h/o multiple kidney stones was seen here 3 days ago for same PFSH Past Medical History Hx Anticoagulant Therapy: Yes (PLAVIX) Arthritis: Yes Depression: Yes Cancer: No Cardiac Catheterization: Yes Cardiovascular Problems: Yes (ENLARGED HEART) High Cholesterol: Yes Chest Pain: Yes Congestive Heart Failure: Yes Cerebrovascular Accident: Yes (TIAS X2) Coronary Artery Disease: Yes Diabetes: No (BORDERLINE) Diminished Hearing: No Endocrine: No Gastrointestinal Disorders: Yes GERD: Yes Genitourinary: No Headaches: Yes Hepatitis: No Hiatal Hernia: No Hypertension: Yes Immune Disorder: No Medical other: Yes (POLYCYSTIC KIDNEY DISEASE) Musculoskeletal: Yes (CERVICAL BONE SPURS, LOWER BACK PAIN) Neurologic: Yes (2 TIA) Reproductive: No Respiratory: No Migraines: Yes Myocardial Infarction: Yes (X 7) Pneumonia: Yes Sleep Apnea: Yes Thyroid Disease: No Past Surgical History Abdominal Surgery: Yes AICD: No Body Medical Devices: 3 CARDIAC STENTS & STENT RIGHT KIDNEY Cardiac Surgery: No Cholecystectomy: Yes Coronary Stent: Yes (X 3) Ear Surgery: No Endocrine Surgery: No Eye Surgery: No Genitourinary Surgery: Yes (MULTIPLE LITHOTRIPSY) Gynecologic Surgery: No Joint Replacement: No Oral Surgery: Yes Pacemaker: No Thoracic Surgery: No Tonsillectomy: Yes Other Surgery: Yes (THUMB REMOVED FROM LEFT HAND (BORN W/2 THUMBS)) Social History Alcohol Use: Yes (RARE) Tobacco Use: No Substance Use: No (PT DENIES) Allergies-Medications (Allergen,Severity, Reaction): Coded Allergies: Lipitor (Verified Allergy, Severe, Rash, 01/14/17) LEGS Zocor (Verified Allergy, Severe, Rash, 01/14/17) LEGS HMG-CoA Reductase Inhibitors (Verified Allergy, Unknown, Cramping, 01/14/17 ) Morphine (Verified Adverse Reaction, Severe, Constipation, 01/14/17) Reported Meds & Prescriptions Reported Meds & Active Scripts Active Zofran Odt (Ondansetron Odt) 4 Mg Tab 4 Mg SL Q8HR PRN Flomax (Tamsulosin HCl) 0.4 Mg Cap 0.4 Mg PO HS Percocet (Oxycodone-Acetaminophen) 5-325 mg Tab 1-2 Tab PO Q6H PRN Zetia (Ezetimibe) 10 Mg Tab 10 Mg PO DAILY Norvasc (Amlodipine Besylate) 10 Mg Tab 10 Mg PO DAILY Pravachol (Pravastatin) 80 Mg Tab 80 Mg PO HS Lisinopril 20 Mg Tab 40 Mg PO DAILY Lasix (Furosemide) 40 Mg Tab 40 Mg PO DAILY Reported Hydrocodone-Acetaminophen 10-300 Tab 1 Tab PO Q6H PRN Potassium Chloride ER (Potassium Chloride) 20 Meq Tab 20 Meq PO BID Carvedilol 12.5 Mg Tab 12.5 Mg PO BID Plavix (Clopidogrel Bisulfate) 75 Mg Tab 75 Mg PO DAILY Aldactone (Spironolactone) 25 Mg Tab 25 Mg PO DAILY Isosorbide Mononitrate ER (Isosorbide Mononitrate) 30 Mg Sameer 30 Mg PO HS Nitrostat SL (Nitroglycerin) 0.4 Mg Subl 0.4 Mg SL DIRECTED PRN 1 tablet under the tongue as needed for chest pain. Repeat every 5 minutes for a total of 3 DOSES or call 911 if NO relief. Aspirin 81 (Aspirin) 81 Mg Tabdr 81 Mg PO DAILY Review of Systems Except as stated in HPI: all other systems reviewed are Neg Gastrointestinal: Positive: Nausea Genitourinary: Positive: Flank Pain Physical Exam Narrative GENERAL: SKIN: Warm and dry. HEAD: Atraumatic. Normocephalic. EYES: Pupils equal and round. No scleral icterus. No injection or drainage. ENT: No nasal bleeding or discharge. Mucous membranes pink and moist. NECK: Trachea midline. No JVD. CARDIOVASCULAR: Regular rate and rhythm. RESPIRATORY: No accessory muscle use. Clear to auscultation. Breath sounds equal bilaterally. GASTROINTESTINAL: Abdomen soft, non-tender, nondistended. Hepatic and splenic margins not palpable. MUSCULOSKELETAL: Extremities without clubbing, cyanosis, or edema. No obvious deformities. NEUROLOGICAL: Awake and alert. No obvious cranial nerve deficits. Motor grossly within normal limits. Five out of 5 muscle strength in the arms and legs. Normal speech. PSYCHIATRIC: Appropriate mood and affect; insight and judgment normal. Data Data Last Documented VS Vital Signs Date Time Temp Pulse Resp B/P Pulse Ox O2 Delivery O2 Flow Rate FiO2 01/14/17 06:22 98.1 76 16 207/111 99 Room Air Orders Complete Blood Count With Diff (01/14/17 06:59) Comprehensive Metabolic Panel (01/14/17 06:59) Urinalysis - C+S If Indicated (01/14/17 06:59) Ct Abd/Pel W/O Iv Contrast (01/14/17 06:59) Ecg Monitoring (01/14/17 06:59) Iv Access Insert/Monitor (01/14/17 06:59) Sodium Chloride 0.9% Flush (Ns Flush) (01/14/17 07:00) Sodium Chlor 0.9% 1000 Ml Inj (Ns 1000 M (01/14/17 06:59) Ketorolac Inj (Toradol Inj) (01/14/17 07:15) Ondansetron Inj (Zofran Inj) (01/14/17 07:45) Urine Culture (01/14/17 07:49) Labs Laboratory Tests Test 01/14/17 07:49 White Blood Count 6.0 TH/MM3 Red Blood Count 3.80 MIL/MM3 Hemoglobin 11.5 GM/DL Hematocrit 32.9 % Mean Corpuscular Volume 86.6 FL Mean Corpuscular Hemoglobin 30.3 PG Mean Corpuscular Hemoglobin 35.0 % Concent Red Cell Distribution Width 13.9 % Platelet Count 179 TH/MM3 Mean Platelet Volume 8.5 FL Neutrophils (%) (Auto) 77.6 % Lymphocytes (%) (Auto) 12.7 % Monocytes (%) (Auto) 7.4 % Eosinophils (%) (Auto) 2.0 % Basophils (%) (Auto) 0.3 % Neutrophils # (Auto) 4.7 TH/MM3 Lymphocytes # (Auto) 0.8 TH/MM3 Monocytes # (Auto) 0.4 TH/MM3 Eosinophils # (Auto) 0.1 TH/MM3 Basophils # (Auto) 0.0 TH/MM3 CBC Comment DIFF FINAL Differential Comment Urine Color YELLOW Urine Turbidity HAZY Urine pH 6.0 Urine Specific [place] 1.012 Urine Protein 100 mg/dL Urine Glucose (UA) NEG mg/dL Urine Ketones NEG mg/dL Urine Occult Blood LARGE Urine Nitrite NEG Urine Bilirubin NEG Urine Urobilinogen LESS THAN 2.0 MG/DL Urine Leukocyte Esterase SMALL Urine RBC /hpf Urine WBC 22 /hpf Urine Bacteria OCC /hpf Urine Hyaline Casts 1 /lpf Urine Mucus FEW /lpf Microscopic Urinalysis Comment CULTURE INDICATED Sodium Level 139 MEQ/L Potassium Level 3.8 MEQ/L Chloride Level 107 MEQ/L Carbon Dioxide Level 20.7 MEQ/L Anion Gap 11 MEQ/L Blood Urea Nitrogen 35 MG/DL Creatinine 4.08 MG/DL Estimat Glomerular Filtration 16 ML/MIN Rate Random Glucose 167 MG/DL Calcium Level 8.5 MG/DL Total Bilirubin 0.4 MG/DL Aspartate Amino Transf 15 U/L (AST/SGOT) Alanine Aminotransferase 24 U/L (ALT/SGPT) Alkaline Phosphatase 84 U/L Total Protein 7.0 GM/DL Albumin 3.5 GM/DL [facility] Medical Decision Making Medical Screen Exam Complete: Yes Emergency Medical Condition: Yes Medical Record Reviewed: Yes Differential Diagnosis renal stone v pyelo v spleen v colitis Narrative Course patient has a 7mm stone on distal ureter however creatinine have been worsening from the 1.4-4 today, this is the worst creatinine level going back 2yrs Diagnosis Primary Impression: ureterolithiasias Additional Impression: acute decompensation of renal insufficiency Admitting Information Admitting Physician Requests: Observation Condition: Stable Naif Currie MD Jan 14, 2017 07:03 Naif Currie MD Jan 14, 2017 07:03
[2017-01-14] MEDS ORDERED: HYDR-2374 PO (07:06)
[2017-01-14] MEDS ORDERED: KETOROLAC TROMETHAMINE 30 MG/ML (IVP) VIAL IVP ONE (07:15)
--- NOTE | 2017-01-14 07:36 | RADRPT ---
EXAM DATE/TIME: 01/14/2017 07:19 [place] COMPARISON: CT ABDOMEN & PELVIS W/O CONTRAST, January 08, 2017, 11:13. INDICATIONS : Left flank pain, history polycystic kidney disease. ORAL CONTRAST: No oral contrast ingested. RADIATION DOSE: 8.54 CTDIvol (mGy) MEDICAL HISTORY : Cardiovascular disease. Hypertension. Cerebrovascular disease.History stroke, TIA SURGICAL HISTORY : Cholecystectomy. ENCOUNTER: Initial ACUITY: 1 week PAIN SCALE: 9/10 LOCATION: Left flank TECHNIQUE: Volumetric scanning of the abdomen and pelvis was performed. Using automated exposure control and ad justment of the mA and/or kV according to patient size, radiation dose was kept as low as reasonably achievable to obtain optimal diagnostic quality images. DICOM format image data is available electro nically for review and comparison. The lack of IV contrast limits the diagnosis for certain organ pa thology. FINDINGS: LOWER LUNGS: The visualized lower lungs are clear. LIVER: Homogeneous density without lesion. There is no dilation of the biliary tree. No gallbladder surgic ally removed.. SPLEEN: Normal size without lesion. PANCREAS: Within normal limits. KIDNEYS: There is no hydronephrosis the right kidney. Multiple stable renal cysts are again demonstrated. Ther e are calcifications in the lower pole of the right kidney suggestive of nonobstructing right renal c alculi. This is stable compared to the prior examination. Also, there are some calcifications associa thi with the right renal cysts. There continues to be hydronephrosis of the left collecting system. T here is a 7 mm stone in the distal left ureter causing obstruction. This stone was present on the tiffanie or exam and has descended down the left ureter to this new position. The there are stable left renal cysts along with some tiny calcifications in the left upper pole ADRENAL GLANDS: Within normal limits. VASCULAR: There is no aortic aneurysm. BOWEL/MESENTERY: The stomach, small bowel, and colon demonstrate no acute abnormality. There is no free intraperitone al air or fluid. ABDOMINAL WALL: Within normal limits. RETROPERITONEUM: There is no lymphadenopathy. BLADDER: There is a mild thickening of the urinary bladder wall. No calcifications are seen in the bladder. REPRODUCTIVE: Within normal limits. INGUINAL: There is no lymphadenopathy or hernia. MUSCULOSKELETAL: Within normal limits for patient age. Stable degenerative changes. CONCLUSION: 1. There is a 7 mm stone in the distal left ureter causing hydronephrosis. 2. There are stable bilateral renal cysts. 3. Stable bilateral renal calculi. 4. No other significant changes compared to the prior exam. Yuriy Robert MD on January 14, 2017 at 7:27 Board Certified Radiologist. This report was verified electronically.
[2017-01-14] MEDS ORDERED: ONDANSETRON HCL 4 MG/2 ML VIAL IV PUSH ONE (07:45)
[2017-01-14 08:07] LABS: AUTOMATED NEUTROPHIL # 4.7 TH/MM3 (1.8-7.7); BASOPHIL % 0.3 % (0.0-2.0); EOSINOPHIL # 0.1 TH/MM3 (0-0.4); HEMATOCRIT 32.9 % (39.0-51.0); HEMO FLAGS DIFF FINAL; LYMPH % 12.7 % (9.0-44.0); LYMPHOCYTE # 0.8 TH/MM3 (1.0-4.8); MEAN CELL VOLUME 86.6 FL (80.0-100.0); MEAN CORPUSCULAR HEMOGLOBIN 30.3 PG (27.0-34.0); MONO % 7.4 % (0.0-8.0); NEUT % 77.6 % (16.0-70.0); PLATELET COUNT 179 TH/MM3 (150-450); RED CELL DISTRIBUTION WIDTH 13.9 % (11.6-17.2)
[2017-01-14 08:17] LABS: BACTERIA, URINE OCC /hpf; BLOOD, URINE LARGE (NEG); COMMENT (UR) CULTURE INDICATED; CULTURE IF INDICATED CULTURE INDICATED; GLUCOSE,URINE NEG (NEG); HYALINE CAST, URINE 1 /lpf (RARE); KETONE, URINE NEG (NEG); MUCUS URINE FEW /lpf (OCC); NITRITE,URINE NEG (NEG); URINE COLOR YELLOW (YELLW/STRAW)
[2017-01-14 08:20] LABS: ANION GAP 11 MEQ/L (5-15); AST (GOT) 15 U/L (15-37); BICARBONATE 20.7 MEQ/L (21.0-32.0); BLOOD UREA NITROGEN 35 MG/DL (7-18); CHLORIDE 107 MEQ/L (98-107); GLOMERULAR FILTRATION RATE 16 ML/MIN (>89); POTASSIUM 3.8 MEQ/L (3.5-5.1); SODIUM (NA) 139 MEQ/L (136-145)
[2017-01-14 08:23] LABS: ALKALINE PHOSPHATASE 84 U/L (45-117); ALT (GPT) 24 U/L (12-78); TOTAL BILIRUBIN ADULT 0.4 MG/DL (0.2-1.0)
--- NOTE | 2017-01-14 09:15 | HHI.HP ---
[facility] Service Family Medicine Primary Care Physician Huang Graf, DO Admission Diagnosis ACUTE RENAL FAILURE DUE TO URETEROLITHIASIS Diagnoses: International Travel<30 Days: No Contact w/Intl Traveler<30days: No Known Affected Area: No History of Present Illness Patient is a 46-year-old male with a PMH significant for polycystic kidney disease, CHF, CAD 3 stents, recurrent renal calculi. Presented today due to progressive worsening of left lower quadrant abdominal pain and nausea/ vomiting. Symptoms started on 01/09 with severe abdominal pain described as constant pressure with radiation to groin. Presented to the ED at which time abdominal CT showed obstructing stone at the middle third of the left ureter. Patient was then treated with Flomax and pain medications. Patient was unable to get pain meds filled due to early refill on narcotics. Patient has therefore been taking ibuprofen and Tylenol, 3 pills each every 3 hours since . Also been endorsing nausea and vomiting and has been unable to keep home medications down. This morning he woke up in pain at 2 AM. He also was vomiting and dry heaving. No blood in vomit. Endorses bloating with last BM one week ago. Endorses flatus. Bright red blood and straining was noted at that time and he does endorse a history of hemorrhoids causing similar symptoms. Denies fevers but endorses chronic but stable symptoms of chest pain, SOB, dysuria. He says he feels like this all the time but there has been no acute change in his symptoms. (Rin Hoffman MD R2) Review of Systems Constitutional: COMPLAINS OF: Chills, Change in appetite, DENIES: Fever Eyes: DENIES: Blurred vision, Eye pain Ears, nose, mouth, throat: DENIES: Throat pain, Running Nose Respiratory: COMPLAINS OF: Shortness of breath, DENIES: Cough, Sputum production Cardiovascular: COMPLAINS OF: Chest pain, DENIES: Lower Extremity Edema Gastrointestinal: COMPLAINS OF: Abdominal pain, Bloody stools, Constipation, Nausea, Vomiting, DENIES: Diarrhea Genitourinary: COMPLAINS OF: Dysuria Musculoskeletal: COMPLAINS OF: Joint pain, Back pain Integumentary: DENIES: Rash Hematologic/lymphatic: DENIES: Lymphadenopathy Neurologic: DENIES: Localized weakness (Rin Hoffman MD R2) Past Family Social History Past Medical History Depression CHF (Echo 11/16/16 w/ EF 45-50% in EMR). Pt reports an EF of 38% performed by his chicken boner) CAD s/p Stent x3 h/o TIA x2 GERD HTN Pre-Diabetes HLD Recurrent kidney stones, previously had a ureter stent on right that has been removed Polycystic Kidney Disease Past Surgical History Cardiac Stent x3 (Last placed 06/2016) Cholecystectomy Tonsillectomy Right ureter stent, removed Extra thumb removed from right thumb Cardiac Cath x7 Reported Medications Reported Meds & Active Scripts Active Zofran Odt (Ondansetron Odt) 4 Mg Tab 4 Mg SL Q8HR PRN Flomax (Tamsulosin HCl) 0.4 Mg Cap 0.4 Mg PO HS Percocet (Oxycodone-Acetaminophen) 5-325 mg Tab 1-2 Tab PO Q6H PRN Zetia (Ezetimibe) 10 Mg Tab 10 Mg PO DAILY Norvasc (Amlodipine Besylate) 10 Mg Tab 10 Mg PO DAILY Pravachol (Pravastatin) 80 Mg Tab 80 Mg PO HS Lisinopril 20 Mg Tab 40 Mg PO DAILY Lasix (Furosemide) 40 Mg Tab 40 Mg PO DAILY Reported Hydrocodone-Acetaminophen 10-300 Tab 1 Tab PO Q6H PRN Potassium Chloride ER (Potassium Chloride) 20 Meq Tab 20 Meq PO BID Carvedilol 12.5 Mg Tab 12.5 Mg PO BID Plavix (Clopidogrel Bisulfate) 75 Mg Tab 75 Mg PO DAILY Aldactone (Spironolactone) 25 Mg Tab 25 Mg PO DAILY Isosorbide Mononitrate ER (Isosorbide Mononitrate) 30 Mg Sameer 30 Mg PO HS Nitrostat SL (Nitroglycerin) 0.4 Mg Subl 0.4 Mg SL DIRECTED PRN 1 tablet under the tongue as needed for chest pain. Repeat every 5 minutes for a total of 3 DOSES or call 911 if NO relief. Aspirin 81 (Aspirin) 81 Mg Tabdr 81 Mg PO DAILY (Rin Hoffman MD R2) Allergies: Coded Allergies: Lipitor (Verified Allergy, Severe, Rash, 01/14/17) LEGS Zocor (Verified Allergy, Severe, Rash, 01/14/17) LEGS HMG-CoA Reductase Inhibitors (Verified Allergy, Unknown, Cramping, 01/14/17 ) Morphine (Verified Adverse Reaction, Severe, Constipation, 01/14/17) Family History Mother: . Breast and skin cancer. Polycystic kidney disease. Severe CAD with multiple MIs Father: Unknown, estranged. Possible cancer Social History Lives with fiance and step son. Tobacco: Denies Alcohol: Socially, rarely Illicit: denies (Rin Hoffman MD R2) Physical Exam Vital Signs Vital Signs Date Time Temp Pulse Resp B/P Pulse Ox O2 Delivery O2 Flow Rate FiO2 01/14/17 06:22 98.1 76 16 207/111 99 Room Air Physical Exam GENERAL: This is a well-nourished, well-developed patient, in no apparent distress. SKIN: No rashes, ecchymoses or lesions. Cool and dry. EYES: Pupils equal round and reactive. Extraocular motions intact. No scleral icterus. No injection or drainage. ENT: Nose without bleeding, purulent drainage. Throat without erythema, tonsillar hypertrophy or exudate. Uvula midline. Airway patent. NECK: Trachea midline. No lymphadenopathy. Supple, nontender, no meningeal signs. CARDIOVASCULAR: Regular rate and rhythm without murmurs, gallops, or rubs. RESPIRATORY: Clear to auscultation. Breath sounds equal bilaterally. No wheezes , rales, or rhonchi. GASTROINTESTINAL: Abdomen soft, non-tender, distended. +BS. No guarding. MUSCULOSKELETAL: Extremities without clubbing, cyanosis, or edema. No calf tenderness. Bilateral flank pain. RECTUM: External rectum unremarkable without evidence of hemorrhoids or fissures. Hemoccult negative NEUROLOGICAL: Awake and alert. Motor and sensory grossly within normal limits. Five out of 5 muscle strength in all muscle groups. Normal speech. Laboratory Laboratory Tests Test 01/14/17 07:49 White Blood Count 6.0 Red Blood Count 3.80 Hemoglobin 11.5 Hematocrit 32.9 Mean Corpuscular Volume 86.6 Mean Corpuscular Hemoglobin 30.3 Mean Corpuscular Hemoglobin 35.0 Concent Red Cell Distribution Width 13.9 Platelet Count 179 Mean Platelet Volume 8.5 Neutrophils (%) (Auto) 77.6 Lymphocytes (%) (Auto) 12.7 Monocytes (%) (Auto) 7.4 Eosinophils (%) (Auto) 2.0 Basophils (%) (Auto) 0.3 Neutrophils # (Auto) 4.7 Lymphocytes # (Auto) 0.8 Monocytes # (Auto) 0.4 Eosinophils # (Auto) 0.1 Basophils # (Auto) 0.0 CBC Comment DIFF FINAL Differential Comment Urine Color YELLOW Urine Turbidity HAZY Urine pH 6.0 Urine Specific [place] 1.012 Urine Protein 100 Urine Glucose (UA) NEG Urine Ketones NEG Urine Occult Blood LARGE Urine Nitrite NEG Urine Bilirubin NEG Urine Urobilinogen LESS THAN 2.0 Urine Leukocyte Esterase SMALL Urine RBC Urine WBC 22 Urine Bacteria OCC Urine Hyaline Casts 1 Urine Mucus FEW Microscopic Urinalysis Comment CULTURE INDICATED Sodium Level 139 Potassium Level 3.8 Chloride Level 107 Carbon Dioxide Level 20.7 Anion Gap 11 Blood Urea Nitrogen 35 Creatinine 4.08 Estimat Glomerular Filtration 16 Rate Random Glucose 167 Calcium Level 8.5 Total Bilirubin 0.4 Aspartate Amino Transf 15 (AST/SGOT) Alanine Aminotransferase 24 (ALT/SGPT) Alkaline Phosphatase 84 Total Protein 7.0 Albumin 3.5 Date/Time Procedure Status Source Growth 01/14/17 07:49 Urine Culture Received Urine Clean Catch Pending (Rin Hoffman MD R2) Result Diagram: 01/14/17 0749 01/14/17 0749 Imaging Last Impressions Abdomen/Pelvis CT 01/14/17 0659 Signed Impressions: Service Date/Time: Saturday, January 14, 2017 07:19 - CONCLUSION: 1. There is a 7 mm stone in the distal left ureter causing hydronephrosis. 2. There are stable bilateral renal cysts. 3. Stable bilateral renal calculi. 4. No other significant changes compared to the prior exam. Yuriy Robert MD (Rin Hoffman MD R2) Assessment and Plan Assessment and Plan 46-year-old male with a PMH significant for polycystic kidney disease, CHF, CAD 3 stents, recurrent renal calculi. Admitted for MARIELOS Code Status Full Discussed Condition With Dr. Aggarwal and Dr. Henriquez (Rin Hoffman MD R2) Attending Attestation The patient has been seen and examined. The chart and all resident notes have been reviewed. I agree that inpatient care is appropriate and that a two midnight stay is expected for the reasons documented in the resident history and physical. I have discussed this with the resident and certify the resident s order for inpatient admission. Patient seen and examined in his hospital room. Case reviewed and discussed with the resident team, RN Please refer to resident H&P for further details regarding HPI, ROS, PMH, SurgHx , FH and SocHx In summary, patient is a 46yoM with a history of PCKD presenting with ureterolithiasis, subsequent L hydronephrosis and ARF He is seen in his hospital room, BPs have been uncontrolled today, now under better control Patient has been unable to take his PO meds. Pain now better controlled as well. GENERAL: wdwn male, sitting up in bed SKIN: Warm and dry. No rashes HEAD: Normocephalic. AT EYES: No scleral icterus. No injection or drainage. ENT: OP Clear. MMM NECK: Supple, trachea midline. No JVD or lymphadenopathy. CARDIOVASCULAR: Regular rate and rhythm without murmurs, gallops, or rubs. RESPIRATORY: Breath sounds equal and clear to auscultation bilaterally. No accessory muscle use. GASTROINTESTINAL: Abdomen soft, non-tender, nondistended. Obese, hypoactive BS MUSCULOSKELETAL: No cyanosis, there is trace bilateral symmetric edema. No calf tenderness. BACK: Nontender without obvious deformity. No CVA tenderness. NEURO: Awake and alert. Normal speech. CN grossly intact. 46yoM admitted with: Ureterolithiasis PCKD ARF Uncontrolled HTN CAD s/p stenting, CHF compensated chronic systolic Urology has been consulted IVF, monitor fluid status Titrate BP meds Flomax, Nifedipine Strain urine Pain control Resume home meds as appropriate SCDs- heparin initiation post-procedure Patient seen and examined. Case reviewed and discussed Agree with plan of care as discussed with me and documented in the resident note. (Irene Henriquez MD) Problem List: (1) MARIELOS (acute kidney injury) Status: Acute Plan: History of polycystic kidney disease causing CKD. Found to have an acute elevation in creatinine from a baseline of around 1.4 up to 4.08 on admission. History significant for excessive use of ibuprofen over the last week as well as left renal stone at 7 mm. Electrolytes unremarkable. -Fluid hydration complicated by associated CHF. Closely monitor fluid overload -Renal ultrasound ordered -Serial BMP -Monitor I&O, may require Rivera if not a getting accurate counts -Avoid nephrotoxic medications -Test urine for eosinophils for interstitial nephritis -Cardiac telemetry 24-48 hours until renal function improves Medications: * Nifedipine 30 mg * Flomax 0.4mg qHS * Fluids, see rate below (2) Ureterolithiasis Status: Acute Plan: History of recurrent renal clavicular. Followed by Dr. Fofana. CT abdomen significant for 7 mm stone in the distal left ureter causing hydronephrosis. Stone has moved since last CT abdomen on 01/08. -No leukocytosis, if develops symptoms of sepsis will add Rocephin Urology consulted: Appreciate recommendations * spoke with Dr. Parham, plan for procedure tomorrow AM * Hold all antiplatelet/anticoagulants (3) Constipation Status: Acute Plan: Severe constipation x1wk. Report of bright red blood 1. Hemoccult negative. Associated with nausea or vomiting. Positive flatus -If continues to have nausea and vomiting, consider NG tube placement -Lactulose 1 in addition to constipation protocol with the exception of milk of magnesium. MiraLAX scheduled daily * May require enema/suppository but the patient would rather try PO medications at this time (4) CAD (coronary artery disease) Status: Chronic Plan: Significant cardiac history with multiple cardiac stents and cardiac catheterizations. Per patient, last cardiac stent was 06/2016. Continue home medications as listed below -Hold aspirin until renal function improves Medications: * HOLD Plavix 75 mg UNTIL AFTER PROCEDURE * HOLD aspirin * Ezetimibe 10mg * Imdur 30mg * Pravastatin 80 mg (5) CHF (congestive heart failure) Status: Chronic Plan: Last echo was 05/2016 with reported EF of 45-50%. However patient reports EF is around 38% based on an echo performed by his [employer]. Continue with home meds Medications: * Carvedilol 12.5 mg BID * Hold home amlodipine as this was temporary switch for nifedipine * Hold Lasix until renal function improves (6) HTN (hypertension) Status: Chronic Plan: BP elevated in the ED but has since decreased. Resume home medications -Hydralazine PRN (7) Polycystic kidney disease Status: Chronic (8) Nutrition, metabolism, and development symptoms Status: Acute Plan: Diet: Clears, progress as tolerated. Nothing by mouth at midnight Electrolytes: Unremarkable Fluids: NS at 80 (1.5L bolus given in the ED 1) DVT prophylaxis: SCDs, heparin if no procedure tomorrow by urology GI prophylaxis: None indicated (Rin Hoffman MD R2) Physician Certification 2 Midnight Certification Type: Admission for Inpatient Services Order for Inpatient Services The services are ordered in accordance with Medicare regulations or non- Medicare payer requirements, as applicable. In the case of services not specified as inpatient-only, they are appropriately provided as inpatient services in accordance with the 2-midnight benchmark. Estimated LOS (days): 3 days is the estimated time the patient will need to remain in the hospital, assuming treatment plan goals are met and no additional complications. Post-Hospital Plan: Home (Rin Hoffman MD R2) Rin Hoffman MD R2 Jan 14, 2017 09:15 Irene Henriquez MD Jan 14, 2017 21:58
[2017-01-14] MEDS ORDERED: LACTULOSE SYRUP 20 GM/30 ML CUP PO PRN (09:45)
[2017-01-14] MEDS ORDERED: NALOXONE HCL 0.4 MG/ML AMP IV PRN ×2 (09:45→10:00)
[2017-01-14] MEDS ORDERED: BISACODYL 10 MG SUPP RECTAL PRN (09:45)
[2017-01-14] MEDS ORDERED: SENNOSIDES 8.6 MG TAB PO PRN (09:45)
[2017-01-14] MEDS ORDERED: MAGNESIUM HYDROXIDE SUSP 30 ML CUP PO PRN (09:45)
[2017-01-14] MEDS ORDERED: SODIUM CHLORIDE 0.9% FLUSH 10 ML FLUSH IV FLUSH PRN (09:45)
[2017-01-14] MEDS ORDERED: ACETAMINOPHEN/HYDROcodone 325 MG/5 MG TAB PO PRN (10:00)
[2017-01-14] MEDS ORDERED: SODIUM CHLORID 0.9% 500 ML INJ 500 ML IV ONE (10:15)
[2017-01-14] MEDS: SODIUM CHLOR 0.9% 1000 ML INJ 1,000 ML IV SCH (10:36)
[2017-01-14] MEDS ORDERED: hydrALAZINE HCL 10 MG TAB PO PRN ×2 (11:30→22:00)
[2017-01-14] MEDS: NIFEdipine 30 MG SUSTAINED RELEASE TAB PO SCH (11:51)
--- NOTE | 2017-01-14 12:45 | RADRPT ---
EXAM DATE/TIME: 01/14/2017 11:50 [facility] COMPARISON: CT ABDOMEN & PELVIS W/O CONTRAST, January 14, 2017, 7:19. INDICATIONS : Flank pain. MEDICAL HISTORY : Hypercholesterolemia. Gastroesophageal reflux disease. Hypertension. Hearing loss. Transient ischemic attack. Myocardial infarction. Migraines. Congestive heart failure. Coronary artery disease. Anticoa gulant therapy, Plavix. Hyperlipidemia. Pneumonia. Sleep apnea. Renal disease. Polycystic kidney dise ase. Renal calculi. Arthritis. Diabetes. Depression. Anxiety. SURGICAL HISTORY : Tonsillectomy. Cholecystectomy. Coronary artery stent. Multiple lithotripsy. Right thumb surgery. Lef t thumb removal. ENCOUNTER: Initial ACUITY: > 1 year PAIN SCORE: 6/10 LOCATION: Bilateral flank MEASUREMENTS: RIGHT KIDNEY: 15.5 x 7.1 x 7.2 cm LEFT KIDNEY: 18.5 x 6.7 x 7.2 cm FINDINGS: RIGHT KIDNEY: Renal cortex is normal in thickness and echotexture. No hydronephrosis or mass. There is a stone ge ng the lower pole measuring 1.2 cm. There is a cyst along the upper pole measuring I. 0.6 x 5.1 cm. T here is smaller cysts seen throughout the right kidney. LEFT KIDNEY: Renal cortex is normal in thickness and echotexture. There is some hydronephrosis of the collecting s ystem.. There is a stone measuring 1.5 cm along the upper pole. There is a cyst along the lower pole measuring 3.3 cm. BLADDER: Within normal limits given the degree of distension. CONCLUSION: 1. Hydronephrosis of the left upper collecting system. 2. Bilateral benign-appearing cysts. 3. Bilateral renal calculi. Yuriy Robert MD on January 14, 2017 at 12:39 Board Certified Radiologist. This report was verified electronically.
[2017-01-14] MEDS: POLYETHYLENE GLYCOL 17 GM PKG PO SCH (12:49)
[2017-01-14] MEDS: ACETAMINOPHEN/HYDROcodone 325 MG/10 MG TAB PO PRN (12:50)
[2017-01-14] MEDS: ONDANSETRON HCL 4 MG/2 ML VIAL IVP PRN (12:50)
--- NOTE | 2017-01-14 13:17 | PD.CONS ---
HPI Service Urology Consult Requested By Reason for Consult Left ureteral calculus Primary Care Physician Huang Graf DO Diagnosis: History of Present Illness 46-year-old gentleman with history adult polycystic kidney disease and nephrolithiasis who presented to the emergency room with ongoing severe left flank pain. Patient actually presented to the emergency room last week with similar symptoms and was treated and released with instructions to follow up with his established urologist Dr. Fofana as an outpatient. Patient did schedule appointment but due to worsening symptoms could not wait any longer and presented back to the emergency room. A CT scan stone protocol was performed that demonstrated an obstructing 7 mm left distal ureteral calculus causing left hydroureteronephrosis. Other CT scan findings included bilateral renal cysts stable in size and appearance and bilateral small renal calculi. Patient was admitted for pain management and a urology consult placed. At the time of consultation the patient was in no acute distress and his pain well managed. He was last treated for nephrolithiasis this past spring with stent placement and shockwave lithotripsy. Patient has been afebrile and denies gross hematuria. Review of Systems Constitutional: DENIES: Fever, Night Sweats Gastrointestinal: COMPLAINS OF: Abdominal pain (left sided) Genitourinary: DENIES: Hematuria, Dysuria Musculoskeletal: COMPLAINS OF: Back pain (left flank) Except as stated in HPI: all other systems reviewed are Neg Past Family Social History Past Medical History APKD Recurrent nephrolithiasis CHF Coronary artery disease status post cardiac catheterization 7 in the past History TIA GERD Hypertension Hyperlipidemia Past Surgical History Status post shockwave lithotripsy with stent placement Status post cardiac stent placement Status post cholecystectomy Status post tonsillectomy Status post right hand surgery Reported Medications Refer to EMR Allergies: Coded Allergies: Lipitor (Verified Allergy, Severe, Rash, 01/14/17) LEGS Zocor (Verified Allergy, Severe, Rash, 01/14/17) LEGS HMG-CoA Reductase Inhibitors (Verified Allergy, Unknown, Cramping, 01/14/17 ) Morphine (Verified Adverse Reaction, Severe, Constipation, 01/14/17) Active Ordered Medications Refer to EMR Family History Adult polycystic kidney disease Coronary artery disease Breast cancer Skin cancer Social History Denies tobacco or illicit drug usage Occasional alcohol use Physical Exam Vital Signs Date Time Temp Pulse Resp B/P Pulse Ox O2 Delivery O2 Flow Rate FiO2 01/14/17 12:57 97.9 56 22 197/112 98 01/14/17 10:35 59 161/97 01/14/17 09:51 59 15 176/102 99 Room Air 01/14/17 06:22 98.1 76 16 207/111 99 Room Air Physical Exam GENERAL: This is a well-nourished, well-developed patient, in no apparent distress. SKIN: No rashes, ecchymoses or lesions. Cool and dry. HEAD: Atraumatic. Normocephalic. No temporal or scalp tenderness. EYES: Pupils equal round and reactive. Extraocular motions intact. No scleral icterus. No injection or drainage. ENT: Nose without bleeding, purulent drainage or septal hematoma. Throat without erythema, tonsillar hypertrophy or exudate. Uvula midline. Airway patent. NECK: Trachea midline. No JVD or lymphadenopathy. Supple, nontender, no meningeal signs. CARDIOVASCULAR: Regular rate and rhythm without murmurs, gallops, or rubs. RESPIRATORY: Clear to auscultation. Breath sounds equal bilaterally. No wheezes , rales, or rhonchi. GASTROINTESTINAL: Abdomen soft, non-tender, nondistended. No hepato-splenomegaly , or palpable masses. No guarding. GENITOURINARY: MUSCULOSKELETAL: Extremities without clubbing, cyanosis, or edema. No joint tenderness, effusion, or edema noted. No calf tenderness. Negative Homans sign bilaterally. NEUROLOGICAL: Awake and alert. Cranial nerves II through XII intact. Motor and sensory grossly within normal limits. Five out of 5 muscle strength in all muscle groups. Normal speech. Laboratory Tests Test 01/14/17 07:49 White Blood Count 6.0 Red Blood Count 3.80 Hemoglobin 11.5 Hematocrit 32.9 Mean Corpuscular Volume 86.6 Mean Corpuscular Hemoglobin 30.3 Mean Corpuscular Hemoglobin 35.0 Concent Red Cell Distribution Width 13.9 Platelet Count 179 Mean Platelet Volume 8.5 Neutrophils (%) (Auto) 77.6 Lymphocytes (%) (Auto) 12.7 Monocytes (%) (Auto) 7.4 Eosinophils (%) (Auto) 2.0 Basophils (%) (Auto) 0.3 Neutrophils # (Auto) 4.7 Lymphocytes # (Auto) 0.8 Monocytes # (Auto) 0.4 Eosinophils # (Auto) 0.1 Basophils # (Auto) 0.0 CBC Comment DIFF FINAL Differential Comment Urine Color YELLOW Urine Turbidity HAZY Urine pH 6.0 Urine Specific [place] 1.012 Urine Protein 100 Urine Glucose (UA) NEG Urine Ketones NEG Urine Occult Blood LARGE Urine Nitrite NEG Urine Bilirubin NEG Urine Urobilinogen LESS THAN 2.0 Urine Leukocyte Esterase SMALL Urine RBC Urine WBC 22 Urine Bacteria OCC Urine Hyaline Casts 1 Urine Mucus FEW Microscopic Urinalysis Comment CULTURE INDICATED Sodium Level 139 Potassium Level 3.8 Chloride Level 107 Carbon Dioxide Level 20.7 Anion Gap 11 Blood Urea Nitrogen 35 Creatinine 4.08 Estimat Glomerular Filtration 16 Rate Random Glucose 167 Calcium Level 8.5 Total Bilirubin 0.4 Aspartate Amino Transf 15 (AST/SGOT) Alanine Aminotransferase 24 (ALT/SGPT) Alkaline Phosphatase 84 Total Protein 7.0 Albumin 3.5 Date/Time Procedure Status Source Growth 01/14/17 07:49 Urine Culture Received Urine Clean Catch Pending Result Diagram: 01/14/17 0749 01/14/17 0749 Imaging Last Impressions Abdomen/Pelvis CT 01/14/17 0659 Signed Impressions: Service Date/Time: Saturday, January 14, 2017 07:19 - CONCLUSION: 1. There is a 7 mm stone in the distal left ureter causing hydronephrosis. 2. There are stable bilateral renal cysts. 3. Stable bilateral renal calculi. 4. No other significant changes compared to the prior exam. Yuriy Robert MD Renal Ultrasound 01/14/17 0000 Signed Impressions: Service Date/Time: Saturday, January 14, 2017 11:50 - CONCLUSION: 1. Hydronephrosis of the left upper collecting system. 2. Bilateral benign-appearing cysts. 3. Bilateral renal calculi. Yuriy Robert MD CT scan images reviewed and concur with the radiologist's interpretation. Assessment and Plan Assessment and Plan Urologic impression: #1 obstructing 7 mm left distal ureteral calculus #2 left hydroureteronephrosis secondary to ureteral calculus #3 bilateral adult polycystic kidney disease #4 bilateral nephrolithiasis Plan: #1 keep patient nothing by mouth after midnight #2 schedule patient for cystoscopy, left retrograde pyelogram and left ureteroscopy with laser lithotripsy for tomorrow. I discussed with the patient that if significant bleeding is encountered, as he has been on recent blood thinners, that I would just pass a lstent to alleviate the obstructive uropathy on the left side. Boston Parham MD Jan 14, 2017 13:17
[2017-01-14 14:32] LABS: BICARBONATE 25.2 MEQ/L (21.0-32.0); POTASSIUM 3.9 MEQ/L (3.5-5.1)
[2017-01-14] MEDS: cloNIDine HCL 0.1 MG TAB PO PRN (15:11)
[2017-01-14 17:42] LABS: BICARBONATE 25.4 MEQ/L (21.0-32.0); POTASSIUM 3.7 MEQ/L (3.5-5.1)
[2017-01-14] MEDS: TAMSULOSIN HCL 0.4 MG CAP PO SCH (20:10)
[2017-01-14] MEDS: PRAVASTATIN SOD 80 MG TAB PO SCH (20:10)
[2017-01-14] MEDS: CARVEDILOL 12.5 MG TAB PO SCH (20:10)
[2017-01-14] MEDS: ISOSORBIDE MONONITRATE 30 MG TAB PO SCH (20:10)
[2017-01-14] MEDS: DOCUSATE SODIUM 50 MG/SENNA 8.6 MG TAB PO SCH (20:10)
[2017-01-14] MEDS: SODIUM CHLORIDE 0.9% FLUSH 10 ML FLUSH IV FLUSH SCH (20:11)
[2017-01-14] MEDS ORDERED: HEPARIN SODIUM - SQ 10,000 UNITS/ML VIAL SQ SCH (21:00)
[2017-01-14] MEDS ORDERED: SODIUM CHLORIDE 0.9% FLUSH 10 ML FLUSH IV FLUSH SCH (21:00)
[2017-01-14 21:11] LABS: BICARBONATE 21.9 MEQ/L (21.0-32.0); POTASSIUM 3.9 MEQ/L (3.5-5.1)
[2017-01-15] VITALS (9 sets, daily range): BP systolic 114–193; BP diastolic 56–92; PULSE 54–64; RESP 16–18; TEMP 96.1–96.9; O2SAT 95–99
[2017-01-15 00:58] LABS: BICARBONATE 25.4 MEQ/L (21.0-32.0); POTASSIUM 3.9 MEQ/L (3.5-5.1)
[2017-01-15] MEDS ORDERED: SPIRONOLACTONE 25 MG TAB PO SCH (09:00)
[2017-01-15] MEDS ORDERED: CLOPIDOGREL 75 MG TAB PO SCH (09:00)
[2017-01-15] MEDS ORDERED: ACETAMINOPHEN 1000 MG/100 ML VIAL IV ONE (11:29)
[2017-01-15] MEDS ORDERED: HYDROmorphone HCL PF 2 MG/ML VIAL ONE (11:29)
[2017-01-15 11:42] LABS: HEMATOCRIT 31.3 % (39.0-51.0); MEAN CELL VOLUME 87.7 FL (80.0-100.0); MEAN CORPUSCULAR HEMOGLOBIN 29.9 PG (27.0-34.0); MEAN CORPUSCULAR HGB CONC 34.1 % (32.0-36.0); PLATELET COUNT 165 TH/MM3 (150-450); RED BLOOD COUNT 3.57 MIL/MM3 (4.50-5.90); RED CELL DISTRIBUTION WIDTH 13.8 % (11.6-17.2); WHITE BLOOD COUNT 4.3 TH/MM3 (4.0-11.0)
[2017-01-15 11:48] LABS: HEMO FLAGS AUTO DIFF
[2017-01-15] MEDS ORDERED: PROPOFOL 200 MG/20 ML AMP IV ONE (12:00)
[2017-01-15] MEDS ORDERED: ONDANSETRON HCL 4 MG/2 ML VIAL IV PUSH ONE (12:00)
[2017-01-15 12:03] LABS: BICARBONATE 27.7 MEQ/L (21.0-32.0)
[2017-01-15] MEDS ORDERED: IOHEXOL 300 MG/ML 50 ML BTL (for RAD DIAG) ONE (12:14)
--- NOTE | 2017-01-15 13:05 | PD.OP ---
Operative Report Date of Surgery: Jan 15, 2017 Preoperative Diagnosis: (1) Ureteral calculus, left Postoperative Diagnosis: (1) Ureteral calculus, left Procedure: Cystoscopy, left retrograde pyelogram, left ureteroscopy with laser lithotripsy and insertion left ureteral catheter. Anesthesia: General Surgeon: Boston Parham Consulting Nurse(s): None Operation and Findings: Indication for procedure: Case of a pleasant 46-year-old gentleman with history recurrent nephrolithiasis who presents now with an obstructing 7 mm left distal ureteral calculus. Operative procedure in detail: Patient was brought to the operating room suite and placed supine on the OR table. He was then placed under general anesthesia. He was then repositioned in the dorsolithotomy position and prepped and draped in normal sterile fashion. After an appropriate timeout was undertaken to proceed with cystoscopic evaluation utilizing the rigid cystoscope with the 20 Greek sheath and the 30 lens. The urethra was patent without stricture formation, the prostatic urethra was nonobstructing. Further passive cystoscope within the urinary bladder revealed both right and left ureteral office is to be correct anatomic position. There was clear reflux noted from the right orifice and there was no reflux noted on the left. A 0.35 sensor wire was then advanced up the patient's left ureter after being negotiated around the distal stone. The cystoscope was withdrawn and the wire was secured to a sterile drape with a hemostat. The self dilating ureteroscope was next advanced alongside the previously past wire with assistance of a secondary wire into the lumen of the scope to facilitate passage. After passing the scope proximally 2 cm the obstructing stone was reached. The intraluminal wire was exchanged for a 200 holmium laser fiber and the patient underwent laser lithotripsy of the stone. Several of the larger stone fragments were retrieved under direct vision with the 2.4 Greek stone basket and sent off for chemical composition analysis. The ureteroscope was withdrawn and a 6 Greek over the ureteral catheter was advanced over the previous the past wire up to the left renal pelvis and the wire withdrawn. A retrograde pyelogram study was performed to outline the left collecting system. Next a 16 Greek 10 cc Rivera catheter was placed and the open-ended ureteral catheter was anchored to the Rivera via a connector. The patient tolerated the procedures without complications and was transferred to the PACU in satisfactory condition. Boston Parham MD Jan 15, 2017 13:05
--- NOTE | 2017-01-15 13:19 | HHI.FPPN ---
Subjective Remarks No acute events overnight. Afebrile, vital signs stable. Patient states that his pain is improved on his medication. Continues to state that his pain is a 4 /10. (Aylin Alcocer MD R3) Objective Vitals Vital Signs Date Time Temp Pulse Resp B/P Pulse Ox O2 Delivery O2 Flow Rate FiO2 01/15/17 08:46 55 01/15/17 08:00 96.9 63 134/63 98 01/15/17 04:00 96.8 64 18 118/59 96 01/15/17 00:00 96.1 57 17 114/56 95 01/14/17 21:34 98 21 01/14/17 21:11 71 01/14/17 21:00 97.0 64 18 147/86 96 01/14/17 20:00 98.1 67 16 166/104 98 01/14/17 16:47 137/66 01/14/17 15:11 97.8 60 21 206/115 98 01/14/17 15:00 63 01/14/17 14:51 20 I/O 01/14/17 01/14/17 01/14/17 01/15/17 01/15/17 01/15/17 07:00 15:00 23:00 07:00 15:00 23:00 Intake Total 450 ml Output Total 2700 ml 850 ml Balance -2250 ml -850 ml Intake Oral 240 ml IV Total 210 ml Output Urine Total 2700 ml 850 ml (Aylin Alcocer MD R3) Result Diagram: 01/15/17 1002 01/15/17 1002 Objective Remarks Gen.: No acute distress Head: Normocephalic. Atraumatic. EENT: Pupils equal round and reactive to light. Nose without drainage. Airway intact. Throat without injection. Cardiovascular: Regular rate and rhythm. No murmurs, rubs or gallops. Respiratory: Lungs clear to auscultation bilaterally. No wheezes or rhonchi. Abdomen: Soft, nontender, nondistended. No peritoneal signs. Musculoskeletal: No gross deformities. No edema. Skin: No obvious rashes or erythema. Neuro: Sensory and motor grossly intact. Cranial nerves II through XII grossly intact. Psych: Appropriate mood and affect (Aylin Alcocer MD R3) A/P Assessment and Plan 46-year-old male with a PMH significant for polycystic kidney disease, CHF, CAD 3 stents, recurrent renal calculi. Admitted for MARIELOS Discharge Planning To home likely tomorrow. (Aylin Alcocer MD R3) Attending Attestation Patient seen and examined. Case reviewed and discussed Agree with plan of care as discussed with me and documented in the resident note. Appreciate urology, will monitor BMP following stent placement. Resume anti-platelet therapy post- ureteral stent placement Cr improving, hydronephrosis on L on ultrasound, will monitor. (Irene Henriquez MD) Problem List: (1) MARIELOS (acute kidney injury) Status: Acute Plan: History of polycystic kidney disease causing CKD. Found to have an acute elevation in creatinine from a baseline of around 1.4 up to 4.08 on admission. History significant for excessive use of ibuprofen over the last week as well as left renal stone at 7 mm. Patient status post lithotripsy and stent placement today Monitor BMP (2) Ureterolithiasis Status: Acute Plan: History of recurrent renal clavicular. Followed by Dr. Fofana. CT abdomen significant for 7 mm stone in the distal left ureter causing hydronephrosis. Stone has moved since last CT abdomen on 01/08. -Plan as above (3) Constipation Status: Acute Plan: Severe constipation x1wk. Report of bright red blood 1. Hemoccult negative. Associated with nausea or vomiting. Positive flatus -Lactulose 1 in addition to constipation protocol with the exception of milk of magnesium. MiraLAX scheduled daily (4) CAD (coronary artery disease) Status: Chronic Plan: Significant cardiac history with multiple cardiac stents and cardiac catheterizations. Per patient, last cardiac stent was 06/2016. Continue home medications as listed below Medications: * Restart Plavix 75 mg * Restart aspirin * Ezetimibe 10mg * Imdur 30mg * Pravastatin 80 mg (5) CHF (congestive heart failure) Status: Chronic Plan: Last echo was 05/2016 with reported EF of 45-50%. However patient reports EF is around 38% based on an echo performed by his Sheep Herder. Continue with home meds Medications: * Carvedilol 12.5 mg BID * Hold home amlodipine as this was temporary switch for nifedipine * Hold Lasix until renal function improves (6) HTN (hypertension) Status: Chronic Plan: BP elevated in the ED but has since decreased. Resume home medications -Hydralazine PRN (7) Polycystic kidney disease Status: Chronic Plan: Patient with known polycystic kidney disease. Baseline creatinine as above. (8) Nutrition, metabolism, and development symptoms Status: Acute Plan: Diet: Regular Electrolytes: Replete when necessary Fluids: Hep-Lock IV DVT prophylaxis: SCDs, heparin GI prophylaxis: None indicated (Aylin Alcocer MD R3) Aylin Alcocer MD R3 Jan 15, 2017 13:19 Irene Henriquez MD Jan 15, 2017 14:25
[2017-01-15 13:21] LABS: BANDS 2 % (0-6); NEUTROPHIL # MANUAL DIFF 3.5 TH/MM3 (1.8-7.7); PLATELET ESTIMATE SMEAR NORMAL (NORMAL); PLATELET MORPHOLOGY NORMAL (NORMAL); POLYS (SEG NEUTROPHILS) 79 % (16-70); SCAN/DIFF FINAL DIFF MANUAL; WBC DIFF SAMPLE 100
[2017-01-15] MEDS ORDERED: DO NOT ADM ANY ANTICOAGULANT DRUGS PRN (13:30)
[2017-01-15] MEDS ORDERED: MIDAZOLAM HCL 2 MG/2 ML VIAL ONE (13:30)
[2017-01-15] MEDS ORDERED: *HYDROmorphone PF 1 MG VIAL PERIprocedural Use ONLY ONE (13:33)
[2017-01-15] MEDS ORDERED: *RESP: ALBUTEROL 2.5 MG/3 ML NEB (PRN) PERIprocedural Use ONLY NEB ONE (13:37)
[2017-01-15] MEDS: ONDANSETRON HCL 4 MG/2 ML VIAL IVP PRN (14:27)
[2017-01-15] MEDS: HEPARIN SODIUM - SQ 10,000 UNITS/ML VIAL SQ SCH ×2 (14:33→20:51)
[2017-01-15] MEDS: NIFEdipine 30 MG SUSTAINED RELEASE TAB PO SCH (16:38)
[2017-01-15] MEDS: CARVEDILOL 12.5 MG TAB PO SCH ×2 (16:38→20:50)
[2017-01-15] MEDS: DOCUSATE SODIUM 50 MG/SENNA 8.6 MG TAB PO SCH ×2 (16:42→20:50)
[2017-01-15] MEDS: POLYETHYLENE GLYCOL 17 GM PKG PO SCH (16:42)
[2017-01-15] MEDS: EZETIMIBE 10 MG TAB PO SCH (16:42)
[2017-01-15] MEDS: cloNIDine HCL 0.1 MG TAB PO PRN (17:39)
[2017-01-15] MEDS: ASPIRIN 81 MG CHEW TAB PO SCH (17:39)
[2017-01-15] MEDS: HYDROmorphone HCL PF 1 MG/ML VIAL IV PRN (17:39)
[2017-01-15] MEDS: CLOPIDOGREL 75 MG TAB PO SCH (17:39)
[2017-01-15] MEDS: SODIUM CHLORIDE 0.9% FLUSH 10 ML FLUSH IV FLUSH SCH ×2 (17:42→20:53)
[2017-01-15] MEDS: SODIUM CHLOR 0.9% 1000 ML INJ 1,000 ML IV SCH ×2 (17:50→23:29)
[2017-01-15] MEDS: PRAVASTATIN SOD 80 MG TAB PO SCH (20:50)
[2017-01-15] MEDS: TAMSULOSIN HCL 0.4 MG CAP PO SCH (20:51)
[2017-01-15] MEDS: ISOSORBIDE MONONITRATE 30 MG TAB PO SCH (20:53)
[2017-01-16] VITALS (9 sets, daily range): BP systolic 158–179; BP diastolic 79–96; PULSE 58–71; RESP 16–20; TEMP 97–97.2; O2SAT 94–99
[2017-01-16] MEDS: SODIUM CHLOR 0.9% 1000 ML INJ 1,000 ML IV SCH ×2 (02:25→20:44)
[2017-01-16] MEDS: ACETAMINOPHEN/HYDROcodone 325 MG/10 MG TAB PO PRN ×3 (02:57→17:20)
[2017-01-16] MEDS: HEPARIN SODIUM - SQ 10,000 UNITS/ML VIAL SQ SCH ×3 (06:00→20:41)
[2017-01-16 08:10] LABS: AUTOMATED NEUTROPHIL # 5.6 TH/MM3 (1.8-7.7); BASOPHIL % 0.2 % (0.0-2.0); EOSINOPHIL # 0.1 TH/MM3 (0-0.4); EOSINOPHIL % 1.1 % (0.0-4.0); HEMATOCRIT 32.7 % (39.0-51.0); HEMO FLAGS DIFF FINAL; LYMPH % 11.8 % (9.0-44.0); LYMPHOCYTE # 0.8 TH/MM3 (1.0-4.8); MEAN CELL VOLUME 86.6 FL (80.0-100.0); MEAN CORPUSCULAR HEMOGLOBIN 29.9 PG (27.0-34.0); MEAN CORPUSCULAR HGB CONC 34.6 % (32.0-36.0); MONO % 6.4 % (0.0-8.0); NEUT % 80.5 % (16.0-70.0); PLATELET COUNT 169 TH/MM3 (150-450); RED BLOOD COUNT 3.77 MIL/MM3 (4.50-5.90); RED CELL DISTRIBUTION WIDTH 13.5 % (11.6-17.2)
[2017-01-16 08:40] LABS: BICARBONATE 26.1 MEQ/L (21.0-32.0); POTASSIUM 3.7 MEQ/L (3.5-5.1)
[2017-01-16] MEDS: CARVEDILOL 12.5 MG TAB PO SCH ×2 (08:58→20:39)
[2017-01-16] MEDS: DOCUSATE SODIUM 50 MG/SENNA 8.6 MG TAB PO SCH ×2 (08:58→20:38)
[2017-01-16] MEDS: POLYETHYLENE GLYCOL 17 GM PKG PO SCH (08:58)
[2017-01-16] MEDS: ASPIRIN 81 MG CHEW TAB PO SCH (08:58)
[2017-01-16] MEDS: EZETIMIBE 10 MG TAB PO SCH (08:58)
[2017-01-16] MEDS: CLOPIDOGREL 75 MG TAB PO SCH (09:00)
[2017-01-16] MEDS: SODIUM CHLORIDE 0.9% FLUSH 10 ML FLUSH IV FLUSH SCH ×2 (09:03→20:39)
--- NOTE | 2017-01-16 09:07 | HHI.FPPN ---
Subjective Remarks No acute events overnight. Afebrile. Patient hypertensive to 179/96. Suspect this is secondary to not taking his antihypertensives prior to his procedure yesterday. He complains of a headache this morning, he believes this is secondary to caffeine withdrawal. Endorses abdominal pain mostly relieved with pain medication. Objective Vitals Vital Signs Date Time Temp Pulse Resp B/P Pulse Ox O2 Delivery O2 Flow Rate FiO2 01/16/17 08:00 97.0 64 18 158/86 96 01/16/17 06:24 97.2 68 16 161/85 98 01/16/17 03:57 16 01/16/17 01:04 97.2 58 18 179/96 99 01/15/17 22:17 96 Nasal Cannula 2.00 01/15/17 20:09 58 01/15/17 20:00 96.1 54 17 157/84 97 01/15/17 16:00 96.3 61 18 193/88 99 01/15/17 14:40 96.1 56 16 176/92 98 01/15/17 14:00 97.6 58 16 173/93 96 Nasal Cannula 2 01/15/17 13:45 58 16 169/87 100 Nasal Cannula 2 01/15/17 13:30 71 16 173/91 97 Nasal Cannula 2 01/15/17 13:15 97.8 75 16 179/85 97 Nasal Cannula 2 I/O 01/15/17 01/15/17 01/15/17 01/16/17 01/16/17 01/16/17 07:00 15:00 23:00 07:00 15:00 23:00 Intake Total 900 ml 2350 ml Output Total 850 ml 520 ml 650 ml 1490 ml 50 ml Balance -850 ml 380 ml -650 ml 860 ml -50 ml Intake Oral 0 ml 960 ml IV Total 200 ml 1390 ml Other 700 ml Output Urine Total 850 ml 500 ml 650 ml 1490 ml 50 ml Estimated Blood Loss 20 ml Result Diagram: 01/16/1742 01/16/17741 Objective Remarks Gen.: No acute distress Head: Normocephalic. Atraumatic. EENT: Pupils equal round and reactive to light. Nose without drainage. Airway intact. Throat without injection. Cardiovascular: Regular rate and rhythm. No murmurs, rubs or gallops. Respiratory: Lungs clear to auscultation bilaterally. No wheezes or rhonchi. Abdomen: Soft, nontender, nondistended. No peritoneal signs. Musculoskeletal: No gross deformities. No edema. Skin: No obvious rashes or erythema. Neuro: Sensory and motor grossly intact. Cranial nerves II through XII grossly intact. Psych: Appropriate mood and affect A/P Assessment and Plan 46-year-old male with a PMH significant for polycystic kidney disease, CHF, CAD 3 stents, recurrent renal calculi. Admitted for MARIELOS Discharge Planning To home once renal function improves. Problem List: (1) MARIELOS (acute kidney injury) Status: Acute Plan: History of polycystic kidney disease causing CKD. Found to have an acute elevation in creatinine from a baseline of around 1.4 up to 4.08 on admission. History significant for excessive use of ibuprofen over the last week as well as left renal stone at 7 mm. patient's creatinine remains elevated today. Patient status post lithotripsy and stent placement Monitor BMP Increase IV fluids (2) Ureterolithiasis Status: Acute Plan: History of recurrent renal clavicular. Followed by Dr. Fofana. CT abdomen significant for 7 mm stone in the distal left ureter causing hydronephrosis. Stone has moved since last CT abdomen on 01/08. -Plan as above (3) Constipation Status: Acute Plan: Severe constipation x1wk. Report of bright red blood 1. Hemoccult negative. Associated with nausea or vomiting. Positive flatus -Lactulose 1 in addition to constipation protocol with the exception of milk of magnesium. MiraLAX scheduled daily (4) CAD (coronary artery disease) Status: Chronic Plan: Significant cardiac history with multiple cardiac stents and cardiac catheterizations. Per patient, last cardiac stent was 06/2016. Continue home medications as listed below Medications: * Plavix 75 mg * Aspirin * Ezetimibe 10mg * Imdur 30mg * Pravastatin 80 mg (5) CHF (congestive heart failure) Status: Chronic Plan: Last echo was 05/2016 with reported EF of 45-50%. However patient reports EF is around 38% based on an echo performed by his Record Clerk Salesperson. Continue with home meds Medications: * Carvedilol 12.5 mg BID * Hold home amlodipine as this was temporary switch for nifedipine * Hold Lasix until renal function improves (6) HTN (hypertension) Status: Chronic Plan: Blood pressure elevated, although suspect this is secondary to patient not receiving his BP medications yesterday. Continue to monitor. Will increase when necessary. -Hydralazine PRN (7) Polycystic kidney disease Status: Chronic Plan: Patient with known polycystic kidney disease. Baseline creatinine as above. (8) Nutrition, metabolism, and development symptoms Status: Acute Plan: Diet: Regular Electrolytes: Replete when necessary Fluids: NS at 120 cc/hour DVT prophylaxis: SCDs, heparin GI prophylaxis: None indicated Aylin Alcocer MD R3 Jan 16, 2017 09:07
[2017-01-16] MEDS ORDERED: Hemodialysis Vas Acc Cath PRN Heparin 1000 unit/ml Flush IV FLUSH (09:15)
[2017-01-16] MEDS ORDERED: Hemodialysis Vas Access Cath PRN NS Lock Flush IV FLUSH (09:15)
--- NOTE | 2017-01-16 12:36 | HHI.PR ---
Subjective Patient symptoms today Postoperative day #1 Rivera/left ureteral catheter removed this morning and patient has been voiding. He reports that the urine has been only blood-tinged on his last void. Objective Vital Signs Vital Signs Date Time Temp Pulse Resp B/P Pulse Ox O2 Delivery O2 Flow Rate FiO2 01/16/17 10:10 94 21 01/16/17 08:00 97.0 64 18 158/86 96 01/16/17 06:24 97.2 68 16 161/85 98 01/16/17 03:57 16 01/16/17 01:04 97.2 58 18 179/96 99 01/15/17 22:17 96 Nasal Cannula 2.00 01/15/17 20:09 58 01/15/17 20:00 96.1 54 17 157/84 97 01/15/17 16:00 96.3 61 18 193/88 99 01/15/17 14:40 96.1 56 16 176/92 98 01/15/17 14:00 97.6 58 16 173/93 96 Nasal Cannula 2 01/15/17 13:45 58 16 169/87 100 Nasal Cannula 2 01/15/17 13:30 71 16 173/91 97 Nasal Cannula 2 01/15/17 13:15 97.8 75 16 179/85 97 Nasal Cannula 2 Intake & Output 01/16/17 01/16/17 07:00 19:00 Intake Total 2350 ml Output Total 2140 ml 50 ml Balance 210 ml -50 ml Intake Oral 960 ml IV Total 1390 ml Output Urine Total 2140 ml 50 ml Result Diagram: 01/16/17 0742 01/16/17 0742 Objective Remarks Abdomen soft, nondistended, nontender Extremities well-perfused Medications and IVs Current Medications Medications (Trade) Dose Ordered Sig/Rochelle Route Start Time Stop Time Status Last Admin (Coreg) 12.5 mg BID PO 01/14/17 21:00 01/16/17 08:58 (Zetia) 10 mg DAILY PO 01/15/17 09:00 01/16/17 08:58 (Imdur) 30 mg HS PO 01/14/17 21:00 01/15/17 20:53 (Pravachol) 80 mg HS PO 01/14/17 21:00 01/15/17 20:50 Tamsulosin HCl 0.4 mg 0.4 mg HS PO 01/14/17 21:00 01/15/17 20:51 (NS 1000 ml Inj) 1,000 ml @ 120 mls/hr Q8H20M IV 01/14/17 10:00 01/15/17 23:29 (NS Flush) 2 ml UNSCH PRN IV FLUSH 01/14/17 09:45 (NS Flush) 2 ml BID IV FLUSH 01/14/17 21:00 (Zofran Inj) 4 mg Q6H PRN IVP 01/14/17 09:45 01/15/17 14:27 (Hafsa-Colace) 1 tab BID PO 01/14/17 21:00 01/16/17 08:58 (Senokot) 17.2 mg Q12H PRN PO 01/14/17 09:45 (Dulcolax Supp) 10 mg DAILY PRN RECTAL 01/14/17 09:45 (Lactulose Liq) 30 ml DAILY PRN PO 01/14/17 09:45 ([place] 5-325 Mg) 1 tab Q4H PRN PO 01/14/17 10:00 ([place] 10-325 Mg) 1 tab Q4H PRN PO 01/14/17 10:00 01/16/17 09:05 (Dilaudid Pf Inj) 1 mg Q3H PRN IV 01/14/17 10:00 01/15/17 17:39 (Narcan Inj) 0.4 mg UNSCH PRN IV 01/14/17 10:00 (Procardia Xl) 30 mg DAILY PO 01/14/17 11:00 01/15/17 16:38 (Miralax) 17 gm DAILY PO 01/14/17 11:45 01/16/17 08:58 (Apresoline) 10 mg Q8HR PRN PO 01/14/17 22:00 (Catapres) 0.1 mg Q6H PRN PO 01/14/17 14:45 01/15/17 17:39 (Aspirin Chew) 81 mg DAILY PO 01/15/17 14:00 01/16/17 08:58 (Plavix) 75 mg DAILY PO 01/15/17 14:00 01/16/17 09:00 (Heparin Inj) 5,000 units Q8HR SQ 01/15/17 14:00 01/15/17 20:51 Miscellaneous Information ALL NURSING DEPARTME... UNSCH PRN .XX 01/15/17 13:30 01/16/17 13:29 (NS Flush) 5 ml UNSCH PRN IV FLUSH 01/16/17 09:15 (Heparin Inj) 2,000 units UNSCH PRN IV FLUSH 01/16/17 09:15 Assessment and Plan Assessment and Plan Urologic impression: #1 status post left ureteroscopy with laser lithotripsy of obstructing distal ureteral calculus #2 stable postop course #3 bilateral adult polycystic kidney disease #4 bilateral nephrolithiasis Plan: #1 discharge home when medically stable #2 patient to keep his previously arranged follow up appointment with Boston Flood MD Jan 16, 2017 12:36
[2017-01-16] MEDS: NIFEdipine 30 MG SUSTAINED RELEASE TAB PO SCH (13:28)
[2017-01-16] MEDS ORDERED: RESP: ALBUTEROL 2.5 MG/IPRATROPIUM 0.5 MG NEB (PRN) NEB (18:30)
[2017-01-16] MEDS: PRAVASTATIN SOD 80 MG TAB PO SCH (20:38)
[2017-01-16] MEDS: HYDROmorphone HCL PF 1 MG/ML VIAL IV PRN (20:38)
[2017-01-16] MEDS: TAMSULOSIN HCL 0.4 MG CAP PO SCH (20:38)
[2017-01-16] MEDS: ISOSORBIDE MONONITRATE 30 MG TAB PO SCH (20:38)
[2017-01-17] VITALS (7 sets, daily range): BP systolic 145–179; BP diastolic 83–99; PULSE 66–76; RESP 16–18; TEMP 96.9–98.2; O2SAT 95–97
[2017-01-17] MEDS: SODIUM CHLOR 0.9% 1000 ML INJ 1,000 ML IV SCH (03:25)
[2017-01-17] MEDS: HEPARIN SODIUM - SQ 10,000 UNITS/ML VIAL SQ SCH ×2 (06:00→14:10)
[2017-01-17 07:11] LABS: AUTOMATED NEUTROPHIL # 4.1 TH/MM3 (1.8-7.7); BASOPHIL % 0.3 % (0.0-2.0); EOSINOPHIL # 0.1 TH/MM3 (0-0.4); EOSINOPHIL % 2.2 % (0.0-4.0); HEMATOCRIT 31.9 % (39.0-51.0); HEMO FLAGS DIFF FINAL; LYMPH % 15.4 % (9.0-44.0); LYMPHOCYTE # 0.8 TH/MM3 (1.0-4.8); MEAN CELL VOLUME 87.2 FL (80.0-100.0); MEAN CORPUSCULAR HEMOGLOBIN 29.4 PG (27.0-34.0); MEAN CORPUSCULAR HGB CONC 33.7 % (32.0-36.0); MONO % 7.1 % (0.0-8.0); PLATELET COUNT 165 TH/MM3 (150-450); RED BLOOD COUNT 3.67 MIL/MM3 (4.50-5.90); RED CELL DISTRIBUTION WIDTH 13.8 % (11.6-17.2); WHITE BLOOD COUNT 5.5 TH/MM3 (4.0-11.0)
[2017-01-17 07:40] LABS: BICARBONATE 26.7 MEQ/L (21.0-32.0); POTASSIUM 3.7 MEQ/L (3.5-5.1)
[2017-01-17] MEDS: CLOPIDOGREL 75 MG TAB PO SCH (09:04)
[2017-01-17] MEDS: NIFEdipine 30 MG SUSTAINED RELEASE TAB PO SCH (09:04)
[2017-01-17] MEDS: EZETIMIBE 10 MG TAB PO SCH (09:04)
[2017-01-17] MEDS: CARVEDILOL 12.5 MG TAB PO SCH (09:04)
[2017-01-17] MEDS: DOCUSATE SODIUM 50 MG/SENNA 8.6 MG TAB PO SCH (09:04)
[2017-01-17] MEDS: ASPIRIN 81 MG CHEW TAB PO SCH (09:05)
[2017-01-17] MEDS: POLYETHYLENE GLYCOL 17 GM PKG PO SCH (09:05)
[2017-01-17] MEDS: SODIUM CHLORIDE 0.9% FLUSH 10 ML FLUSH IV FLUSH SCH (09:05)
--- NOTE | 2017-01-17 09:17 | HHI.FPPN ---
Subjective Remarks Rivera catheter removed. Urinating without difficulty however his urine is bloody. He is reporting increasing SOB since last night that is different than his baseline. He says that he feels congested and has been having some blood, after blowing his nose. He reports a history of nose bleeds. He says that last night he kept waking up because he noticed that he was not sleeping. He does have a dx of AMELIE however does not have a cpap machine. He denies chest pain, fevers, new productive cough, or difficulty with breathing while ambulating. Objective Vitals Vital Signs Date Time Temp Pulse Resp B/P Pulse Ox O2 Delivery O2 Flow Rate FiO2 01/17/17 08:54 97.4 74 16 166/93 95 01/17/17 04:30 98.2 66 18 150/87 97 01/17/17 00:00 97.5 76 18 156/90 97 01/16/17 21:08 18 01/16/17 20:11 98 Nasal Cannula 3.00 01/16/17 20:00 97.0 71 18 169/92 96 01/16/17 16:00 97.0 63 18 166/87 97 01/16/17 12:00 97.0 67 20 166/79 97 01/16/17 10:10 94 21 I/O 01/16/17 01/16/17 01/16/17 01/17/17 01/17/17 01/17/17 07:00 15:00 23:00 07:00 15:00 23:00 Intake Total 2350 ml 1615 ml 600 ml 1512 ml Output Total 1490 ml 1550 ml 2350 ml 2100 ml Balance 860 ml 65 ml -1750 ml -588 ml Intake Oral 960 ml 840 ml 600 ml IV Total 1390 ml 775 ml 1512 ml Output Urine Total 1490 ml 1550 ml 2350 ml 2100 ml # Bowel Movements 1 Result Diagram: 01/17/17 0652 01/17/17 0652 Objective Remarks Gen.: No acute distress Head: Normocephalic. Atraumatic. EENT: Pupils equal round and reactive to light. Nose without drainage. Airway intact. Throat without injection. Cardiovascular: Regular rate and rhythm. No murmurs, rubs or gallops. Respiratory: Lungs clear to auscultation bilaterally. No wheezes or rhonchi. Abdomen: Soft, nontender, nondistended. No peritoneal signs. Musculoskeletal: No gross deformities. No edema. Skin: No obvious rashes or erythema. Neuro: Sensory and motor grossly intact. Cranial nerves II through XII grossly intact. Psych: Appropriate mood and affect A/P Assessment and Plan 46-year-old male with a PMH significant for polycystic kidney disease, CHF, CAD 3 stents, recurrent renal calculi. Admitted for MARIELOS Discharge Planning To home once renal function improves. Problem List: (1) MARIELOS (acute kidney injury) Status: Acute Plan: History of polycystic kidney disease causing CKD. Found to have an acute elevation in creatinine from a baseline of around 1.4 up to 4.08 on admission. History significant for excessive use of ibuprofen over the last week as well as left renal stone at 7 mm. patient's creatinine remains elevated today. Patient status post lithotripsy and stent placement Monitor BMP (improved from 4.08 --> 2.15) D/c IVF (2) Ureterolithiasis Status: Acute Plan: History of recurrent renal clavicular. Followed by Dr. Fofana. CT abdomen significant for 7 mm stone in the distal left ureter causing hydronephrosis. Stone has moved since last CT abdomen on 01/08. -Plan as above (3) Constipation Status: Acute Plan: Severe constipation x1wk. Report of bright red blood 1. Hemoccult negative. Associated with nausea or vomiting. Positive flatus -Lactulose 1 in addition to constipation protocol with the exception of milk of magnesium. MiraLAX scheduled daily (4) CAD (coronary artery disease) Status: Chronic Plan: Significant cardiac history with multiple cardiac stents and cardiac catheterizations. Per patient, last cardiac stent was 06/2016. Continue home medications as listed below Medications: * Plavix 75 mg * Aspirin * Ezetimibe 10mg * Imdur 30mg * Pravastatin 80 mg * Lasix 20 x 1 given hypertension (discharge home on lasix 20 mg PO with 10 meq KCL, repeat BMP in 3-5 days.) (5) CHF (congestive heart failure) Status: Chronic Plan: Last echo was 05/2016 with reported EF of 45-50%. However patient reports EF is around 38% based on an echo performed by his Study Lead. Continue with home meds Medications: * Continue antihypertensive medications including amlodipine, lasix, and carvedilol. (6) HTN (hypertension) Status: Chronic Plan: Blood pressure elevated, although suspect this is secondary to patient not receiving his BP medications yesterday. Continue to monitor. Will increase when necessary. -Hydralazine PRN (7) Polycystic kidney disease Status: Chronic Plan: Patient with known polycystic kidney disease. Baseline creatinine as above. (8) Nutrition, metabolism, and development symptoms Status: Acute Plan: Diet: Regular Electrolytes: Replete when necessary Fluids: Tolerated PO DVT prophylaxis: SCDs, heparin GI prophylaxis: None indicated Mikey Aggarwal MD R2 Jan 17, 2017 09:17
[2017-01-17] MEDS ORDERED: HYDR-3583 PO (09:31)
[2017-01-17] MEDS ORDERED: FURO20TA PO (12:20)
[2017-01-17] MEDS ORDERED: POTA10TA2 PO (12:20)
--- NOTE | 2017-01-17 12:21 | HHI.DCPOC ---
Discharge Care Plan Diagnosis: (1) Hematuria (2) Renal insufficiency (3) HTN (hypertension) (4) Polycystic kidney disease (5) Ureteral calculus, left Goals to Promote Your Health * To prevent worsening of your condition and complications * To maintain your health at the optimal level Directions to Meet Your Goals Take your medications as prescribed Follow your dietary instruction Follow activity as directed Keep your appointments as scheduled Take your immunizations and boosters as scheduled If your symptoms worsen call your PCP, if no PCP go to Urgent Care Center or Emergency Room Smoking is Dangerous to Your Health. Avoid second hand smoke Call the 24-hour hour crisis hotline for domestic abuse at Mikey Aggarwal MD R2 Jan 17, 2017 12:21
[2017-01-17] MEDS: ACETAMINOPHEN/HYDROcodone 325 MG/10 MG TAB PO PRN (13:21)
[2017-01-17] MEDS: cloNIDine HCL 0.1 MG TAB PO PRN (13:21)
[2017-01-17] MEDS ORDERED: FUROSEMIDE 20 MG TAB PO SCH (14:00)
--- NOTE | 2017-01-17 14:49 | HHI.DS ---
Discharge Summary Admission Date Jan 14, 2017 at 09:12 Admitting Diagnosis ACUTE RENAL FAILURE DUE TO URETEROLITHIASIS (1) MARIELOS (acute kidney injury) Plan: History of polycystic kidney disease causing CKD. Found to have an acute elevation in creatinine from a baseline of around 1.4 up to 4.08 on admission. History significant for excessive use of ibuprofen over the last week as well as left renal stone at 7 mm. patient's creatinine remains elevated today. Patient status post lithotripsy and stent placement Monitor BMP (improved from 4.08 --> 2.15) D/c IVF (2) Ureterolithiasis Plan: History of recurrent renal clavicular. Followed by Dr. Fofana. CT abdomen significant for 7 mm stone in the distal left ureter causing hydronephrosis. Stone has moved since last CT abdomen on 01/08. -Plan as above (3) Constipation Plan: Severe constipation x1wk. Report of bright red blood 1. Hemoccult negative. Associated with nausea or vomiting. Positive flatus -Lactulose 1 in addition to constipation protocol with the exception of milk of magnesium. MiraLAX scheduled daily (4) CAD (coronary artery disease) Plan: Significant cardiac history with multiple cardiac stents and cardiac catheterizations. Per patient, last cardiac stent was 06/2016. Continue home medications as listed below Medications: * Plavix 75 mg * Aspirin * Ezetimibe 10mg * Imdur 30mg * Pravastatin 80 mg * Lasix 20 x 1 given hypertension (discharge home on lasix 20 mg PO with 10 meq KCL, repeat BMP in 3-5 days.) (5) CHF (congestive heart failure) Plan: Last echo was 05/2016 with reported EF of 45-50%. However patient reports EF is around 38% based on an echo performed by his [employer]. Continue with home meds Medications: * Continue antihypertensive medications including amlodipine, lasix, and carvedilol. (6) HTN (hypertension) Plan: Blood pressure elevated, although suspect this is secondary to patient not receiving his BP medications yesterday. Continue to monitor. Will increase when necessary. -Hydralazine PRN (7) Polycystic kidney disease Plan: Patient with known polycystic kidney disease. Baseline creatinine as above. (8) Nutrition, metabolism, and development symptoms Plan: Diet: Regular Electrolytes: Replete when necessary Fluids: Tolerated PO DVT prophylaxis: SCDs, heparin GI prophylaxis: None indicated Brief History Patient is a 46-year-old male with a PMH significant for polycystic kidney disease, CHF, CAD 3 stents, recurrent renal calculi. Presented today due to progressive worsening of left lower quadrant abdominal pain and nausea/ vomiting. Symptoms started on 01/09 with severe abdominal pain described as constant pressure with radiation to groin. Presented to the ED at which time abdominal CT showed obstructing stone at the middle third of the left ureter. Patient was then treated with Flomax and pain medications. Patient was unable to get pain meds filled due to early refill on narcotics. Patient has therefore been taking ibuprofen and Tylenol, 3 pills each every 3 hours since . Also been endorsing nausea and vomiting and has been unable to keep home medications down. This morning he woke up in pain at 2 AM. He also was vomiting and dry heaving. No blood in vomit. Endorses bloating with last BM one week ago. Endorses flatus. Bright red blood and straining was noted at that time and he does endorse a history of hemorrhoids causing similar symptoms. Denies fevers but endorses chronic but stable symptoms of chest pain, SOB, dysuria. He says he feels like this all the time but there has been no acute change in his symptoms. CBC/BMP: 01/17/17 0652 01/17/17 0652 Significant Findings Laboratory Tests Test 01/14/17 01/14/17 01/14/17 01/15/17 17:08 20:10 23:52 10:02 Chloride Level 109 MEQ/L 110 MEQ/L 109 MEQ/L 110 MEQ/L (98-107) (98-107) (98-107) (98-107) Blood Urea Nitrogen 30 MG/DL (7-18) 28 MG/DL (7-18) 27 MG/DL (7-18) 24 MG/DL (7- 18) Creatinine 3.38 MG/DL 3.08 MG/DL 2.90 MG/DL 2.66 MG/DL (0.60-1.30) (0.60-1.30) (0.60-1.30) (0.60-1.30) Estimat Glomerular Filtration 20 ML/MIN (>89) 22 ML/MIN (>89) 24 ML/MIN (>89) 26 ML/MIN (>89) Rate Random Glucose 126 MG/DL 115 MG/DL (74-106) (74-106) Calcium Level 8.2 MG/DL 8.2 MG/DL 8.0 MG/DL 8.2 MG/DL (8.5-10.1) (8.5-10.1) (8.5-10.1) (8.5-10.1) Red Blood Count 3.57 MIL/MM3 (4.50-5.90) Hemoglobin 10.7 GM/DL (13.0-17.0) Hematocrit 31.3 % (39.0-51.0) Neutrophils % (Manual) 79 % (16-70) Test 01/16/17 01/17/17 07:42 06:52 Red Blood Count 3.77 MIL/MM3 3.67 MIL/MM3 (4.50-5.90) (4.50-5.90) Hemoglobin 11.3 GM/DL 10.8 GM/DL (13.0-17.0) (13.0-17.0) Hematocrit 32.7 % 31.9 % (39.0-51.0) (39.0-51.0) Neutrophils (%) (Auto) 80.5 % 75.0 % (16.0-70.0) (16.0-70.0) Lymphocytes # (Auto) 0.8 TH/MM3 0.8 TH/MM3 (1.0-4.8) (1.0-4.8) Chloride Level 109 MEQ/L 109 MEQ/L (98-107) (98-107) Blood Urea Nitrogen 20 MG/DL (7-18) Creatinine 2.63 MG/DL 2.15 MG/DL (0.60-1.30) (0.60-1.30) Estimat Glomerular Filtration 26 ML/MIN (>89) 33 ML/MIN (>89) Rate Random Glucose 146 MG/DL 117 MG/DL (74-106) (74-106) Calcium Level 8.3 MG/DL 8.3 MG/DL (8.5-10.1) (8.5-10.1) PE at Discharge Gen.: No acute distress Head: Normocephalic. Atraumatic. EENT: Pupils equal round and reactive to light. Nose without drainage. Airway intact. Throat without injection. Cardiovascular: Regular rate and rhythm. No murmurs, rubs or gallops. Respiratory: Lungs clear to auscultation bilaterally. No wheezes or rhonchi. Abdomen: Soft, nontender, nondistended. No peritoneal signs. Musculoskeletal: No gross deformities. No edema. Skin: No obvious rashes or erythema. Neuro: Sensory and motor grossly intact. Cranial nerves II through XII grossly intact. Psych: Appropriate mood and affect Hospital Course Patient is a 46-year-old male, presenting with a past medical history of polycystic kidney disease, CHF, coronary artery disease status post 3 stents, recurrent renal calculi, presenting with a distal stone a 7 mm in the left ureter and an acute kidney injury. His left ureter was stented and Dr. Fofana performed a lithotripsy. He was restarted on his home aspirin and Plavix. His last stent was in June 2016. His acute kidney injury resolved after stenting, and aggressive fluid therapy. He was discharged home in stable condition. Pt Condition on Discharge: Good Discharge Disposition: Discharge Home Discharge Instructions DIET: Follow Instructions for: Heart Healthy Diet Activities you can perform: Regular-No Restrictions New Medications: Furosemide (Furosemide) 20 Mg Tab 20 MG PO DAILY #30 Ref 0 TAB Potassium Chloride ER (Potassium Chloride ER) 10 Meq Tab 10 MEQ PO DAILY Electrolyte Replacement #30 Ref 0 TAB Hydrocodone-Acetaminophen (Hydrocodone-Acetaminophen) 10-325 mg Tab 1 TAB PO Q4H PRN PAIN SCALE 6 TO 10 #45 Ref 0 TAB Continued Medications: Amlodipine (Norvasc) 10 Mg Tab 10 MG PO DAILY Blood Pressure Management #[address] (Aspirin 81) 81 Mg Tabdr 81 MG PO DAILY Ref 0 TAB Carvedilol (Carvedilol) 12.5 Mg Tab 12.5 MG PO BID #60 Ref 0 TAB Clopidogrel (Plavix) 75 Mg Tab 75 MG PO DAILY Blood Clot Prevention #30 Ref 0 TAB Ezetimibe (Zetia) 10 Mg Tab 10 MG PO DAILY #30 TAB Isosorbide Mononitrate ER (Isosorbide Mononitrate ER) 30 Mg Sameer 30 MG PO HS Prevent Chest Pain #30 Ref 0 TAB Nitroglycerin SL (Nitrostat SL) 0.4 Mg Subl 0.4 MG SL DIRECTED 1 tablet under the tongue as needed for chest pain. Repeat every 5 minutes for a total of 3 DOSES or call 911 if NO relief. PRN CHEST PAIN #100 Ref 0 TAB.SL Ondansetron Odt (Zofran Odt) 4 Mg Tab 4 MG SL Q8HR PRN Nausea/Vomiting #6 Ref 0 TAB Pravastatin (Pravachol) 80 Mg Tab 80 MG PO HS Cholesterol Management #30 TAB Spironolactone (Aldactone) 25 Mg Tab 25 MG PO DAILY #30 Ref 0 TAB Tamsulosin (Flomax) 0.4 Mg Cap 0.4 MG PO HS Manage Prostate Problems #6 Ref 0 CAP Discontinued Medications: Furosemide (Lasix) 40 Mg Tab 40 MG PO DAILY Blood Pressure Management #30 TAB Hydrocodone-Acetaminophen (Hydrocodone-Acetaminophen) 10-300 Tab 1 TAB PO Q6H PRN PAIN Ref 0 TAB Lisinopril (Lisinopril) 20 Mg Tab 40 MG PO DAILY Blood Pressure Management #30 TAB Oxycodone-Acetaminophen (Percocet) 5-325 mg Tab 1-2 TAB PO Q6H PRN PAIN #30 Ref 0 TAB Potassium Chloride ER (Potassium Chloride ER) 20 Meq Tab 20 MEQ PO BID Electrolyte Replacement #60 Ref 0 TAB Mikey Aggarwal MD R2 Jan 17, 2017 14:48
[2017-01-18] MEDS ORDERED: OXYB5TAB10 PO (13:59)
== END 2017-01-17 18:44 | disposition home or self-care (01) | DRG 669 ==
LOC: NEPC 06:19 → NEDA 09:04 → OBSVTOIN 09:12 → HCIS 12:30 → HOCA 20:34 → HOCB 01-15 21:04
PROVIDERS: ADMIT Family Medicine; ATTEND Family Medicine
PROC: 0TC78ZZ Extirpation of Matter from Left Ureter, Via Natural or Artificial Opening Endoscopic (ICD-10-PCS; 2017-01-15)
PROC: BT1F1ZZ Fluoroscopy of Left Kidney, Ureter and Bladder using Low Osmolar Contrast (ICD-10-PCS; principal; 2017-01-15 11:41)
DX: N13.2 Hydronephrosis with renal and ureteral calculous obstruction (principal); I13.0 Hypertensive heart and chronic kidney disease with heart failure and stage 1 through stage 4 chronic kidney disease, or unspecified chronic kidney disease; N17.9 Acute kidney failure, unspecified; I50.9 Heart failure, unspecified; Q61.2 Polycystic kidney, adult type; F15.93 Other stimulant use, unspecified with withdrawal; E78.5 Hyperlipidemia, unspecified; G47.33 Obstructive sleep apnea (adult) (pediatric); N18.9 Chronic kidney disease, unspecified; I25.10 Atherosclerotic heart disease of native coronary artery without angina pectoris; I25.2 Old myocardial infarction; K21.9 Gastro-esophageal reflux disease without esophagitis; K59.00 Constipation, unspecified; Z86.73 Personal history of transient ischemic attack (TIA), and cerebral infarction without residual deficits; Z95.5 Presence of coronary angioplasty implant and graft
CPT/HCPCS: 74176; 74420; 76775; 76937; 80048; 80053; 81001; 82370; 85007; 85025; 85027; 87086; 87205; 88300; 94150; 94664; C1769; J0131; J1170; J1644; J1885; J2250; J2405; J3010; J7030; J7040; J7613; Q9967